=== PATIENT | male | born 1960 | race Caucasian/White ===

== ENCOUNTER 2019-01-01 20:41 | Emergency (ER) | payer MEDICARE ==
[2019-01-01] VITALS (7 sets, daily range): BP systolic 136–162; BP diastolic 77–92
[~2019-01-01] VITALS: Ht 198.1 cm; Wt 117.9 kg
[~2019-01-01 20:41] MED LIST: ACET325T12 PO; ASPI325T14 PO; FLAV100T PO; GUAI600T31 PO; IBUP200T63 PO; LEVO500T51 PO; NITR100C58 PO; TRAM50TA PO
--- NOTE | 2019-01-01 20:41 | NUR ---
ARRIVAL PATIENT PRESENTS VIA AMBULANCE. EMS REPORT THAT PATIENT REPORTS THAT HE IS "HOT" AND HAS MUSCLE CRAMPS. PATIENT IS SCREAMING OUT SAYING THAT HIS LEGS ARE CRAMPING. WHEN PATIENT TRANSFERS TO BED HE IS COMPLAINING OF A SNAKE THAT IS ON HIS FOREHEAD. REPORTS THAT HE HAS BEEN LOOKING FOR WATER ALL DAY AND NO ONE WOULD GIVE HIM ANY. EMS REPORT THAT PD HAS BEEN CALLED ON HIM SEVERAL TIMES TODAY. PATIENT IS JUST REPEATING THAT HE NEEDS WATER. VSS. NO DISTRESS NOTED. MD JAME NOTIFIED.
[2019-01-01] MEDS ORDERED: ATIVAN PO STA (21:17)
[2019-01-01] MEDS ORDERED: ZYPREXA IM STA (21:25)
--- NOTE | 2019-01-01 21:25 | ER.PDOC ---
General Chief Complaint: General Complaint Stated Complaint: OVERHEATED TRAVEL OUT OF US: No Time seen by MD: 20:45 Source: patient, EMS Exam Limitations: clinical condition, intoxication History of Present Illness Initial Comments Pt brought by EMS, because he was overheated, said to EMS that he smoked meth, but, denied it to me. Initially he refused me taking care of him because he said that I had treated him and injected something in his toe, then he accepted that it wasn't me. He c/o of cramps on his legs. Timing/Duration: unsure Associated Symptoms: denies symptoms Allergies: Coded Allergies: Penicillins (Verified Allergy, Unknown, Rash, 07/30/16) sulfamethoxazole (Verified Allergy, Unknown, 07/30/16) trimethoprim (Verified Allergy, Unknown, 07/30/16) ciprofloxacin (Verified Adverse Reaction, Severe, TONGUE SWELLING, 07/30/16) Home Meds Reported Medications Flavoxate Hcl (FLAVOXATE HCL) 100 Mg Tablet, 100 MG PO TID, #30 TABLET 08/02/16 Tramadol Hcl (TRAMADOL HCL) 50 Mg Tablet, 1 TAB PO Q4 for PAIN, #15 TAB 08/02/16 Guaifenesin (MUCINEX) 600 Mg Tablet.er, 1 TAB PO TID, #14 TAB 07/30/16 Aspirin (ASPIRIN) 325 Mg Tablet, 650 MG PO Q6 PRN for PAIN, TABLET 05/01/16 Past Medical History Medical History: no pertinent history Surgical History: no surgical history Social History Smoking: less than 1 pack/day Alcohol Use: none Drug Use: marijuana, Meth Review of Systems Constitutional: see HPI Psychiatric/Neurological: anxiety, other (hallucinating, weepy, fearful) All Other Systems: Reviewed and Negative Physical Exam General Appearance: Anxious EENT: eyes nml inspection Neck: Non-Tender, Full Range of Motion, Supple Respiratory: chest non-tender, lungs clear CVS: reg rate & rhythm, no murmur, no gallop, pulses nml Gastrointestinal: Normal Bowel Sounds, No Organomegaly, No Pulsatile Mass, Non Tender Back: Normal Inspection, No CVA Tenderness, No Vertebral Tenderness Extremities: Normal Range of Motion, Non-Tender Neurologic/Psychiatric: Oriented x 3, Other (hallucinating) Skin: Normal Color Lymphatic: No Adenopathy Results/Orders Results/Orders Orders - DAIJA KILGORE MD Lorazepam (Ativan) (01/01/19 21:17) Acetaminophen With Codeine (Tylenol #3) (01/01/19 21:30) Cyclobenzaprine Hcl (Flexeril) (01/01/19 21:30) Olanzapine (Zyprexa) (01/01/19 21:25) Cyclobenzaprine Hcl (Flexeril) (01/01/19 21:44) Acetaminophen With Codeine (Tylenol #3) (01/01/19 21:44) Lorazepam (Ativan) (01/01/19 21:44) Olanzapine (Zyprexa) (01/01/19 22:04) Urinalysis (01/01/19 22:25) Drug Screen Medical(Ml) (01/01/19 22:25) Urine Culture (01/02/19 00:25) Vital Signs Date Time Temp Pulse Resp B/P (MAP) Pulse Ox O2 Delivery O2 Flow Rate FiO2 01/01/19 23:30 94 160/86 (110) 95 01/01/19 23:00 97 155/91 (112) 95 01/01/19 22:30 96 136/86 (103) 96 01/01/19 22:00 98 162/78 (106) 95 01/01/19 21:30 102 148/92 (110) 96 01/01/19 21:12 97.7 106 18 01/01/19 21:02 97.7 106 18 96 Room Air 01/01/19 21:00 104 149/77 (101) 97 01/01/19 20:41 97.7 106 18 142/83 (102) 96 Room Air Administered Medications Medications (Trade) Dose Ordered Sig/Ghislaine Route PRN Reason Start Time Stop Time Status Last Admin Dose Admin Cyclobenzaprine HCl (Flexeril) 10 mg STAT PRN PO MUSCLE SPASM 01/01/19 21:30 01/31/19 21:29 01/01/19 21:55 10 MG Lorazepam (Ativan) 1 mg STAT STAT PO 01/01/19 21:17 01/01/19 21:19 DC 01/01/19 21:55 1 MG Olanzapine (Zyprexa) 10 mg STAT STAT IM 01/01/19 21:25 01/01/19 21:26 DC 01/01/19 22:22 10 MG Laboratory Tests Test 01/02/19 00:25 Urine Collection Type CATH Urine Color SAMMIE (YELLOW) Urine Appearance HAZY (CLEAR) H Urine Bilirubin NEGATIVE MG/DL (NEGATIVE) Urine Ketones 5 mg/dL (NEGATIVE) H Urine Specific [place] 1.020 (1.005-1.035) Urine pH 5 (5.0-6.0) Urine Protein 30 mg/dL (NEGATIVE) H Urine Urobilinogen NORMAL (NEGATIVE) Urine Nitrate NEGATIVE (NEGATAIVE) Urine Leukocyte Esterase 25 /uL TRACE (NEGATIVE) Urine Blood 50 2+ (NEGATIVE) H Urine RBC 5-10 RBC/HPF (NONE SEEN) H Urine WBC 5-10 WBC/HPF (0-2) H Urine Squamous Epithelial Cells FEW #/HPF (FEW) Urine Bacteria RARE (NONE SEEN) Urine Hyaline Casts 2-5 (NONE SEEN) Urine Glucose NORMAL (NEGATIVE) Urine Opiates, Qualitative NEGATIVE ng/mL (CUT-OFF:300) Urine Methadone, Qualitative POSITIVE ng/mL (CUT-OFF:300) Urine Amphetamine Qualitative POSITIVE ng/mL (CUTOFF:1000) Urine Barbiturates, Qualitative NEGATIVE ng/mL (CUT-OFF:200) Urine Phencyclidine Screen NEGATIVE ng/mL (CUT-OFF:25) Urine MDMA (Ecstasy), Qualitative POSITIVE ng/mL (CUT-OFF:300) Urine Benzodiazepines Screen NEGATIVE ng/mL (CUT-OFF:200) Urine Cocaine Qualitative NEGATIVE ng/mL (CUT-OFF:300) Ur Tetrahydrocannabinol (THC) Scrn POSITIVE ng/mL (CUT-OFF:50) H Course Sepsis Screening Results: Posi: POSITIVE SEPSIS RISK Duration or Total Time Spent w: 55 Vitals & review Data Vital Sign - Last 24 Hours 01/01/19 01/01/19 01/01/19 01/01/19 20:41 21:00 21:02 21:12 Temp 97.7 97.7 97.7 Pulse 106 104 106 106 Resp 18 18 18 B/P (MAP) 142/83 (102) 149/77 (101) Pulse Ox 96 97 96 O2 Delivery Room Air Room Air 01/01/19 01/01/19 01/01/19 01/01/19 21:30 22:00 22:30 23:00 Pulse 102 98 96 97 B/P (MAP) 148/92 (110) 162/78 (106) 136/86 (103) 155/91 (112) Pulse Ox 96 95 96 95 01/01/19 23:30 Pulse 94 B/P (MAP) 160/86 (110) Pulse Ox 95 Laboratory Tests Test 01/02/19 00:25 Urine Collection Type CATH Urine Color SAMMIE Urine Appearance HAZY Urine Bilirubin NEGATIVE MG/DL Urine Ketones 5 mg/dL Urine Specific [place] 1.020 Urine pH 5 Urine Protein 30 mg/dL Urine Urobilinogen NORMAL Urine Nitrate NEGATIVE Urine Leukocyte Esterase 25 /uL TRACE Urine Blood 50 2+ Urine RBC 5-10 RBC/HPF Urine WBC 5-10 WBC/HPF Urine Squamous Epithelial Cells FEW #/HPF Urine Bacteria RARE Urine Hyaline Casts 2-5 Urine Glucose NORMAL Urine Opiates, Qualitative NEGATIVE ng/mL Urine Methadone, Qualitative POSITIVE ng/mL Urine Amphetamine Qualitative POSITIVE ng/mL Urine Barbiturates, Qualitative NEGATIVE ng/mL Urine Phencyclidine Screen NEGATIVE ng/mL Urine MDMA (Ecstasy), Qualitative POSITIVE ng/mL Urine Benzodiazepines Screen NEGATIVE ng/mL Urine Cocaine Qualitative NEGATIVE ng/mL Ur Tetrahydrocannabinol (THC) Scrn POSITIVE ng/mL Current Medications Medications (Trade) Dose Ordered Sig/Ghislaine PRN Reason Start Time Stop Time Status Last Admin Cyclobenzaprine HCl (Flexeril) 10 mg STAT PRN MUSCLE SPASM 01/01/19 21:30 01/31/19 21:29 01/01/19 21:55 Sepsis Infection Criteria Pres: None O2 Sat by Pulse Oximetry: 96 Departure Time of Disposition: 01:23 Disposition: 01 HOME, SELF-CARE Impression: Primary Impression: Methadone use disorder, mild, abuse Additional Impressions: Methamphetamine abuse Marijuana abuse Hallucinations Condition: Stable Referrals: GLORIA GUZMAN MD (PCP) PRIMARY CARE PROVIDER Duration or Time Spent with Pa: 20 Problem Qualifiers DAIJA KILGORE MD Jan 01, 2019 21:25
[2019-01-01] MEDS ORDERED: FLEXERIL PO PRN (21:30)
[2019-01-01] MEDS ORDERED: TYLENOL #3 PO ONE ×2 (21:30→21:44)
[2019-01-01] MEDS ORDERED: ATIVAN ONE (21:44)
[2019-01-01] MEDS ORDERED: FLEXERIL ONE (21:44)
[2019-01-01] MEDS ORDERED: ZYPREXA IM ONE (22:04)
--- NOTE | 2019-01-01 22:45 | NUR ---
UPDATE PATIENT RESTING IN BED WITH EYES CLOSED. MONITOR SHOWS VSS. NO SIGNS OF DISTRESS NOTED. CONTINUE TO MONITOR CLOSELY.
[2019-01-02] VITALS (8 sets, daily range): BP systolic 113–134; BP diastolic 63–94
--- NOTE | 2019-01-02 00:30 | NUR ---
UPDATE PATIENT RESTING IN BED WITH EYES CLOSED. MONITOR SHOWS VSS. NO SIGNS OF DISTRESS NOTED. CONTINUE TO MONITOR CLOSELY.
[2019-01-02 00:52] LABS: APPEARANCE,URINE HAZY (CLEAR); UA COLOR AMBER (YELLOW)
[2019-01-02 00:53] LABS: BILIRUBIN,URINE NEGATIVE (NEGATIVE); UROBILINOGEN,URINE NORMAL (NEGATIVE)
[2019-01-02] MEDS ORDERED: NS 1000ML 1,000 ML IV ONE (01:30)
--- NOTE | 2019-01-02 01:45 | NUR ---
UPDATE PATIENT IS AWAKE, YELLING AND CURSING AT RN. WILL NOT ALLOW IV PLACEMENT. DR KILGORE NOTIFIED.
[2019-01-02] MEDS ORDERED: NS 1000ML 1,000 ML ONE (02:09)
--- NOTE | 2019-01-02 02:15 | NUR ---
DISCHARGE SEVERAL ATTEMPTS HAVE BEEN MADE TO DISCHARGE PATIENT. PATIENT WILL NOT GET OUT OF BED AND GET DRESSED. PATIENT'S SISTER WAS ALSO CALLED TO COME AND PICK PATIENT UP AND SHE REFUSED, SAYING THAT SHE HAS NOT SPOKEN TO HIM IN 2 YEARS.
--- NOTE | 2019-01-02 03:08 | NUR ---
UPDATE PSYCHODRAMATIST CONTACTED REGARDING PATIENT'S STATE AND BEING UNABLE TO DISCHARGE PATIENT DUE TO SAFETY REASONS. PATIENT CAN HARDLY STAND AND NEARLY FALLS OVER WHEN HE TRIES TO WALK. PSYCHODRAMATIST ADVISED OF SITUATION. PATIENT DEPARTED BUT REMAINS IN ROOM.
== END 2019-01-02 03:08 | disposition home or self-care (01) ==
LOC: ER 20:41 → EDBD 20:41 → ER 01-02 03:08
DX: F15.10 Other stimulant abuse, uncomplicated (principal); F12.10 Cannabis abuse, uncomplicated; F11.10 Opioid abuse, uncomplicated; R44.3 Hallucinations, unspecified; F41.9 Anxiety disorder, unspecified; F17.200 Nicotine dependence, unspecified, uncomplicated; Z79.82 Long term (current) use of aspirin; Z79.899 Other long term (current) drug therapy; Z88.0 Allergy status to penicillin; Z88.1 Allergy status to other antibiotic agents; Z88.2 Allergy status to sulfonamides; Z79.891 Long term (current) use of opiate analgesic
CPT/HCPCS: 36415; 80307; 81000; 87086; 96372; 99284; J3490; J7030; 80324; 80349; 80358

== ENCOUNTER 2019-01-02 15:56 | Inpatient (IN) | payer MEDICARE ==
[~2019-01-02] VITALS: Ht 198.1 cm; Wt 91.6 kg
--- NOTE | 2019-01-02 15:56 | NUR ---
ARRIVAL PT CAME TO ED[facility] VIA STRETCHER BY EMS. PT STATES HE HAS PASSED OUT A COUPLE OF TIMES TODAY. STATES HE WAS HERE FOR MALNUTRITION AND DEHYDRATION LAST NIGHT BUT WAS NOT GIVEN ANYTHING TO EAT OR DRINK WHILE HERE.BSM ON, REPORT GIVEN TO EDP. FOOD TRAY ORDERED.
[2019-01-02 16:17] VITALS: BP 130/72
--- NOTE | 2019-01-02 16:23 | ER.PDOC ---
General Chief Complaint: Syncope Stated Complaint: SYNCOPE TRAVEL OUT OF US: No Time seen by MD: 16:21 Source: patient Exam Limitations: no limitations History of Present Illness Initial Comments Heat exhaustion and hunger. Patient is homeless and says he has not eaten in past few days. Severity: moderate Associated Symptoms: weakness Allergies: Coded Allergies: Penicillins (Verified Allergy, Unknown, Rash, 07/30/16) sulfamethoxazole (Verified Allergy, Unknown, 07/30/16) trimethoprim (Verified Allergy, Unknown, 07/30/16) ciprofloxacin (Verified Adverse Reaction, Severe, TONGUE SWELLING, 07/30/16) Home Meds Reported Medications Flavoxate Hcl (FLAVOXATE HCL) 100 Mg Tablet, 100 MG PO TID, #30 TABLET 08/02/16 Tramadol Hcl (TRAMADOL HCL) 50 Mg Tablet, 1 TAB PO Q4 for PAIN, #15 TAB 08/02/16 Guaifenesin (MUCINEX) 600 Mg Tablet.er, 1 TAB PO TID, #14 TAB 07/30/16 Aspirin (ASPIRIN) 325 Mg Tablet, 650 MG PO Q6 PRN for PAIN, TABLET 05/01/16 Past Medical History Medical History: other Surgical History: no surgical history Social History Smoking: cigarettes, greater than 1 pack/day Alcohol Use: none Drug Use: marijuana, Meth Review of Systems Constitutional: see HPI EENTM: no symptoms reported Respiratory: no symptoms reported Cardiovascular: no symptoms reported Gastrointestinal: no symptoms reported All Other Systems: Reviewed and Negative Physical Exam General Appearance: No Apparent Distress, WD/WN Neck: Non-Tender, Full Range of Motion, Supple, Normal Inspection Respiratory: chest non-tender, lungs clear, normal breath sounds, no respiratory distress CVS: reg rate & rhythm, no murmur, no gallop, pulses nml, nml capillary refill Gastrointestinal: Normal Bowel Sounds, No Organomegaly, No Pulsatile Mass, Non Tender Back: Normal Inspection Extremities: Normal Range of Motion Neurologic/Psychiatric: lighting specialist II-XII NML as Tested Results/Orders Results/Orders Orders - ADONAY GOMEZ MD Cbc With Auto Diff (01/02/19 16:18) Comprehensive Metabolic Panel (01/02/19 16:18) Creatine Kinase (01/02/19 16:18) Ekg-Routine (01/02/19 16:18) Troponin I (01/02/19 16:18) Vital Signs Date Time Temp Pulse Resp B/P (MAP) Pulse Ox O2 Delivery O2 Flow Rate FiO2 01/02/19 16:17 97.4 85 14 130/72 (91) 96 Room Air 01/02/19 16:11 97.4 85 16 96 Room Air 01/02/19 16:11 97.4 85 14 01/02/19 05:07 207.9 85 Laboratory Tests Test 01/02/19 16:40 White Blood Count 7.4 10^3/uL (4.5-11.0) Red Blood Count 5.12 10^6/uL (4.50-5.90) Hemoglobin 16.3 g/dL (13.9-16.3) Hematocrit 46.7 % (37.0-53.0) Mean Corpuscular Volume 91.2 fL (78-100) Mean Corpuscular Hemoglobin 31.8 pg (26-34) Mean Corpuscular Hemoglobin Concent 34.9 g/dL (33-37) Red Cell Distribution Width 13.5 % (11.5-14.5) Platelet Count 201 10^3/uL (150-400) Mean Platelet Volume 8.9 fL (7.8-11.0) Neutrophils (%) (Auto) 41.7 % (41.0-85.0) Lymphocytes (%) (Auto) 43.6 % (24.0-44.0) Monocytes (%) (Auto) 12.7 % (5.0-12.0) H Neutrophils # (Auto) 3.1 10^3/uL (1.8-7.7) Lymphocytes # (Auto) 3.2 10^3/uL (1.0-4.8) Monocytes # (Auto) 0.9 10^3/uL (0.3-0.8) H Absolute Immature Granulocyte (auto 0.01 10^3 u/L (0-2) Immature Granulocytes % 0.10 % (0.00-0.50) Eosinophils % 1.4 % (0.0-5.0) Basophils % 0.5 % (0.0-0.2) H Basophils # 0.0 10^3/uL (0.0-0.1) Eosinophil Count 0.1 10^3/uL (0.0-0.2) Sodium Level 139 mmol/L (132-145) Potassium Level 3.6 mmol/L (3.6-5.2) Chloride Level 103.0 mmol/L (96-109) Carbon Dioxide Level 25.5 mmol/L (20.0-32) Anion Gap 14.1 Blood Urea Nitrogen 29 mg/dL (7-18) H Creatinine 2.06 mg/dL (0.59-1.40) *H Estimated GFR () 40.3 (>/=60) BUN/Creatinine Ratio 14.0 Glucose Level 73 mg/dL (70-110) Calcium Level 8.2 mg/dL (8.4-10.5) L Total Bilirubin 1.4 mg/dL (0.2-1.0) H Aspartate Amino Transferase (AST) 31 U/L (0-35) Alanine Aminotransferase (ALT) 32 U/L (12-78) Alkaline Phosphatase 95 U/L (50-136) Total Creatine Kinase 243 U/L (39-308) Troponin I < 0.02 ng/mL (0.00-0.05) Total Protein 6.4 g/dL (6.4-8.2) Albumin 3.6 g/dL (3.4-5.0) Globulin 2.8 EKG/XRAY/CT/US EKG Comments: Normal Departure Time of Disposition: 17:26 Disposition: 09 ADMITTED INPATIENT Impression: Primary Impression: NEIL (acute kidney injury) Additional Impressions: Dehydration UTI (urinary tract infection) Qualified Codes: N39.0 - Urinary tract infection, site not specified; R31.9 - Hematuria, unspecified Condition: Stable Referrals: GLORIA GUZMAN MD (PCP) PRIMARY CARE PROVIDER Comments Admitted to Dr. Bowling Duration or Time Spent with Pa: 60 mins PATRICIA,ADONAY Lund MD Jan 02, 2019 16:23
--- NOTE | 2019-01-02 16:27 | PCM.EKG ---
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
[2019-01-02 16:50] LABS: BASOPHIL % 0.5 % (0.0-0.2); EOSINOPHIL # 0.1 10^3/uL (0.0-0.2); EOSINOPHIL % 1.4 % (0.0-5.0); HEMOGLOBIN 16.3 g/dL (13.9-16.3); LYMPHOCYTES # 3.2 10^3/uL (1.0-4.8); LYMPHOCYTES % 43.6 % (24.0-44.0); MEAN CELL HGB 31.8 pg (26-34); MEAN CELL HGB CONCENTRATION 34.9 g/dL (33-37); MEAN CORP VOLUME 91.2 fL (78-100); MEAN PLATELET VOLUME 8.9 fL (7.8-11.0); MONOCYTES # 0.9 10^3/uL (0.3-0.8); MONOCYTES % 12.7 % (5.0-12.0); NEUTROPHIL # 3.1 10^3/uL (1.8-7.7); NEUTROPHILS % 41.7 % (41.0-85.0); RED CELL DISTRIBUTION WIDTH 13.5 % (11.5-14.5); WHITE BLOOD CELL 7.4 10^3/uL (4.5-11.0)
[2019-01-02 17:08] LABS: ALANINE AMINOTRANSFERASE(ML) 32 U/L (12-78); ALKALINE PHOSPHATASE 95 U/L (50-136); ASPARTATE AMINO TRANSFERASE 31 U/L (0-35); CALCIUM 8.2 mg/dL (8.4-10.5); CARBON DIOXIDE 25.5 mmol/L (20.0-32); GLUCOSE 73 mg/dL (70-110)
--- NOTE | 2019-01-02 17:19 | NUR ---
HOSPITALIST DR GOMEZ ON PHONE WITH DR ZHANG
--- NOTE | 2019-01-02 17:30 | NUR ---
STATUS PT EATING SANDWICH TRAY AT BEDSIDE.
[2019-01-02] MEDS ORDERED: HNS 1000ML/KCL 20MEQ 1,000 ML IV STA (17:31)
[2019-01-02] MEDS ORDERED: ROCEPHIN 1,000 MG in NS 100ML 100 ML IV STA (17:31)
[2019-01-02] MEDS ORDERED: NS 100ML 100 ML IV ONE (17:36)
[2019-01-02] MEDS ORDERED: HNS 1000ML/KCL 20MEQ 1,000 ML ONE (17:36)
[2019-01-02] MEDS ORDERED: ROCEPHIN ONE (17:37)
--- NOTE | 2019-01-02 18:05 | NUR ---
ADMIT PT TRANSFERRED TO [facility] VIA , REPORT GIVEN TO [facility].
[2019-01-02 20:40] VITALS: BP 135/96
[2019-01-03 04:39] VITALS: BP 116/62
--- NOTE | 2019-01-03 06:50 | NUR ---
REPORT RECEIVED REPORT, ASSUMED CARE FOR PATIENT AT THIS TIME.
[2019-01-03] MEDS: NS 1000ML 1,000 ML IV SCH ×2 (07:00→19:50)
[2019-01-03 07:30] VITALS: BP 125/70
--- NOTE | 2019-01-03 10:15 | NUR ---
PATIENT AMBULATING IN HALLWAY
[2019-01-03 11:58] VITALS: BP 131/68
[2019-01-03] MEDS ORDERED: ZANAFLEX PO PRN (14:00)
[2019-01-03] MEDS ORDERED: ATIVAN IV PRN (14:00)
--- NOTE | 2019-01-03 14:14 | DIREP ---
PROCEDURE:CHEST 1 VIEW COMPARISON:[facility], CR, XRAY CHEST 2 VWS, 05/24/2018, 00:11 AM. [facility], CR, XRAY CHEST 2 VWS, 03/15/2017, 11:02 AM. [facility], CT, CT ABD/PELVIS W/O, 05/01/2016, 02:40 AM. INDICATIONS:Short of breath FINDINGS: LUNGS/PLEURA:No significant pulmonary parenchymal abnormalities. No effusions. VASCULATURE:Normal. Unremarkable pulmonary vasculature. CARDIAC:Normal. No cardiac silhouette abnormality or cardiomegaly. MEDIASTINUM:Normal. No visible mass or adenopathy. BONES:Normal. No fracture or visible bony lesion. OTHER:Negative. CONCLUSION:No acute cardiopulmonary abnormalities. There is no significant change as compared with the previous examination. Dictated by: Daljit Hickey M.D. on 01/03/2019 at 02:13 PM
[2019-01-03] MEDS ORDERED: ROCEPHIN ONE (14:50)
[2019-01-03] MEDS ORDERED: NS 100ML 100 ML IV ONE (14:50)
[2019-01-03] MEDS: MUCINEX PO SCH ×2 (14:56→21:00)
[2019-01-03] MEDS: ROCEPHIN 1,000 MG in NS 100ML 100 ML IV SCH (14:56)
[2019-01-03] MEDS: URISPAS PO SCH ×2 (14:56→21:00)
[2019-01-03] MEDS: LOVENOX SQ SCH (14:57)
[2019-01-03 16:09] VITALS: BP 128/70
[2019-01-03] MEDS: ULTRAM PO SCH ×3 (16:10→23:37)
--- NOTE | 2019-01-03 16:48 | HPH ---
ADMIT DATE: CHIEF COMPLAINT: Syncope and shortness of breath. HISTORY OF PRESENT ILLNESS: This is a 58-year-old male with a past medical history of hepatitis C, polysubstance abuse, homelessness, and nephrolithiasis who presents via EMS after he was found at a store in town very weak and confused. The patient states that he lives in a tent and had gotten very hot over the last several days and had been very weak, developed shortness of breath and cough, and started having episodes of fainting. He states he decided to walk for help, but fainted in the field and when he woke up, he did not know what time it was, but he proceeded to walk to a store where he could call 911. He states that secondary to his homelessness, he is not able to eat very much and he has gone several days without eating. He has significant leg cramping and pain, which he states is a chronic problem for him. His biggest complaint at this time, however, is the shortness of breath, cough and congestion as well as a fullness that he describes in the chest and esophagus that is related that he does not know what it is related to. He states that it gives him nausea and he has had several episodes of vomiting over the last couple of days. The patient has a history of schizophrenia and very likely due to social and psychiatric conditions. He has not had a home in several months. He does, however, continue to abuse methamphetamine 3-4 times per week, as well as borrow methadone, hydrocodone, Xanax from friends. He admits to smoking marijuana and smoking 3 packs of cigarettes per day. He states he drinks once or twice per week. PAST MEDICAL HISTORY: 1. Hypertension. 2. Schizophrenia. 3. Nephrolithiasis. 4. Ureterolithiasis. 5. Benign prostatic hypertrophy. 6. Homelessness. 7. Polysubstance abuse. 8. Chronic kidney disease. 9. Reported history of hypertension. 10. Reported history of chronic liver disease. MEDICATIONS: 1. Tramadol p.r.n. 2. Flavoxate. 3. Guaifenesin. ALLERGIES: PENICILLIN, CIPRO AND SULFA. PAST SURGICAL HISTORY: Denies. SOCIAL HISTORY: Alcohol -- 1-3 drinks per week. Tobacco -- 3 packs per day x 45 years. Chronic marijuana, methamphetamine, opiate, ecstasy, and benzodiazepine use. The patient is homeless and is currently living in a tent in [facility]. FAMILY HISTORY: Denies. He states that he has a daughter and ex-girlfriend in [place], but he is estranged from all family. REVIEW OF SYSTEMS: GENERAL: Positive for overall weakness, fatigue and malaise. CARDIAC: Denies chest pain other than fullness in the esophagus. No orthopnea or PND. RESPIRATORY: Positive for shortness of breath, cough and congestion. No reported history of tuberculosis. GASTROINTESTINAL: Positive for nausea, vomiting. Denies constipation or diarrhea. Positive history of hepatitis C. No GI bleeding per history. GENITOURINARY: Denies dysuria, frequency, hematuria or nocturia. No incontinence. HEMATOLOGIC: No easy bleeding or bruising. ENDOCRINE: No recent weight loss or weight gain. No temperature intolerance. NEUROLOGIC: Denies headache, paresthesias or dizziness. One episode of syncope earlier today. MUSCULOSKELETAL: Chronic muscle weakness throughout most muscle groups. PSYCHIATRIC: Positive for anxiety symptoms on a daily basis. DERMATOLOGIC: Denies bruising or skin lesions. OBJECTIVE: VITAL SIGNS: Temperature is 97.4, pulse 84, respirations 14, pulse ox 96%. GENERAL: This is a weak-appearing male in no acute distress. He is disheveled. HEENT: Atraumatic, normocephalic. Sclerae are clear and anicteric. Oral mucosa is moist. NECK: Soft, supple, normal range of motion. No bruits, goiter, mass or adenopathy. LUNGS: Decreased breath sounds bilaterally with coarse breath sounds on expiration at bilateral upper lobes. HEART: Regular rate and rhythm without S3 or S4. No murmurs heard. ABDOMEN: Soft, nontender, nondistended. Positive bowel sounds. No masses felt. EXTREMITIES: Warm and well perfused without evidence of edema, cyanosis or clubbing. NEUROLOGIC: Cranial nerves 2-12 are grossly intact and symmetric. SKIN: Intact. LABORATORY DATA: WBC 7.4, hemoglobin 16.3, hematocrit 46.7, platelets 201. Sodium 139, potassium 3.6, chloride 103, CO2 of 25, BUN 29, creatinine 2.06. Glucose 73, calcium 8.2, total bilirubin 1.4, AST 31, ALT 32. Alkaline phosphatase 95, total CK 243. Troponin I negative. Urinalysis; 5-10 wbc's, rare bacteria, positive for blood and protein. Urine drug screen -- positive for methadone, amphetamine, MDMA, and THC. Drug screen from 24 hours ago was positive for methadone also. Head CT pending. ASSESSMENT: 1. Heat exhaustion. 2. Syncope. 3. Shortness of breath. 4. Upper respiratory tract infection. 5. Atypical chest pain. 6. Urinary tract infection. 7. Polysubstance overdose. 8. Acute kidney injury. 9. Hyperbilirubinemia. 10. Hepatitis C. PLAN: 1. The patient is admitted to [facility] for further evaluation and management. 2. Start on IV antibiotics for urinary tract infection as well as upper respiratory tract infection. 3. We will check CT of the chest now, but will ultimately need a chest CT given his atypical chest pain, shortness of breath, and smoking history. 4. We will check PSA given his extensive urologic history. 5. Aggressive IV fluid resuscitation for heat exhaustion and acute kidney injury. Kidney injury pattern currently looks like acute tubular necrosis or possibly interstitial nephritis. We will get more information over the next 24 hours. 6. Check tuberculosis, HIV, hepatitis screening. 7. Watch closely for any signs of withdrawal of alcohol or other substances. 8. Needs social service consultation for evaluation and possible placement. 9. Stress ulcer and DVT prophylaxis. 10. Sputum and urine culture pending. Greater than 65 minutes spent with the patient today including time with interview and physical examination, review of all diagnostic data, extensive discussion with the patient, and documentation. Greater than 50% of this visit was spent in counseling and coordination of care. Orlando Bowling MD DR: IFRAH/kiana JOB# [id number]
--- NOTE | 2019-01-03 18:50 | NUR ---
Report Received report from Kevon Abbott LVN
[2019-01-03 20:38] VITALS: BP 142/81
[2019-01-03 23:47] VITALS: BP 122/70
[2019-01-04] MEDS: ULTRAM PO SCH ×6 (04:35→23:48)
[2019-01-04 04:59] VITALS: BP 143/83
[2019-01-04 05:45] LABS: MEAN CELL HGB 32.5 pg (26-34); MEAN CELL HGB CONCENTRATION 35.1 g/dL (33-37); MEAN CORP VOLUME 92.6 fL (78-100); MEAN PLATELET VOLUME 8.9 fL (7.8-11.0); RED CELL DISTRIBUTION WIDTH 13.1 % (11.5-14.5); WHITE BLOOD CELL 5.5 10^3/uL (4.5-11.0)
[2019-01-04 06:23] LABS: CALCIUM 7.5 mg/dL (8.4-10.5); CARBON DIOXIDE 24.9 mmol/L (20.0-32)
--- NOTE | 2019-01-04 06:57 | NUR ---
REPORT RECEIVED REPORT, ASSUMED CARE FOR PATIENT AT THIS TIME.
[2019-01-04 07:54] VITALS: BP 120/64
[2019-01-04] MEDS: MUCINEX PO SCH ×3 (08:54→21:15)
[2019-01-04] MEDS: URISPAS PO SCH ×3 (08:54→21:15)
[2019-01-04] MEDS: PROTONIX PO SCH (08:54)
[2019-01-04] MEDS: NS 1000ML 1,000 ML IV SCH ×2 (09:10→21:14)
[2019-01-04 12:01] VITALS: BP 122/68
--- NOTE | 2019-01-04 14:05 | PRM.PN ---
Subjective Subjective Date: Jan 04, 2019 Time: 13:58 Subjective Pt. feeling minimally better. Still with sob and mild atypical chest pain. Cough and with moderate to severe chest congestion. Feels fairly weak. No other overnight complaints. Patient History: Coronary artery disease in mother 32 MOTHER, , Age:68 Diabetes insipidus 33 FATHER, FH: breast cancer 32 MOTHER, , Age:68 G8 SISTER FHx: sudden cardiac (SCD) 32 MOTHER, , Age:68 Hypertension G8 BROTHER No known health problems G8 SISTER G8 BROTHER G8 BROTHER Pacemaker 32 MOTHER, , Age:68 VTE VTE Risk Total Score: 1 VTE Risk Score VTE Risk: Score 0-1 = Low Risk (Aggressive mobilization; early ambulation; no VTE prophylaxis required) Score 2: Moderate Risk (Intermittent/Pneumatic Compression Device OR Lovenox/Heparin/Coumadin) Score 3-4: High Risk (Intermittent/Pneumatic Compression Device AND Lovenox/Heparin/Coumadin) Score > or =5: Highest Risk (Intermittent/Pneumatic Compression Device AND Lovenox/Heparin/Coumadin) Review of Systems Constitutional: Weakness; No: Fever, Chills, Sweats, Malaise, Other ENT: No: Ear pain, Ear discharge, Nose pain, Nose discharge, Nose congestion, Mouth pain, Mouth swelling, Throat pain, Throat swelling, Other Respiratory: Cough, Shortness of breath, SOB with excertion, Wheezing, Pl euritic Pain, Sputum Cardiovascular: Chest Pain; No: Palpitations, Orthopnea, Paroxysmal Noc. Dy spnea, Edema, Lt Headedness, Other Gastrointestinal: No: Nausea, Vomiting, Abdominal Pain, Diarrhea, Constipation, Melena, Hematochezia, Other Genitourinary: No Dysuria, No Frequency, No Incontinence, No Hematuria, No Retention, No Other Neurological: Weakness; No: Numbness, Incoordination, Change in speech, Confusion, Seizures, Other Allergies: Coded Allergies: Penicillins (Verified Allergy, Unknown, Rash, 07/30/16) sulfamethoxazole (Verified Allergy, Unknown, 07/30/16) trimethoprim (Verified Allergy, Unknown, 07/30/16) ciprofloxacin (Verified Adverse Reaction, Severe, TONGUE SWELLING, 07/30/16) Scheduled Flavoxate Hcl (Flavoxate Hcl), 100 MG PO TID, (Reported) Guaifenesin (Mucinex), 1 TAB PO TID, (Reported) Tramadol Hcl (Tramadol Hcl), 1 TAB PO Q4, (Reported) Discontinued Medications Aspirin (Aspirin), 650 MG PO Q6 PRN for PAIN, (Reported) Discontinued Reason: Cancel Objective Vitals and I/O Vital Sign - Last 24 Hours 01/03/19 01/03/19 01/03/19 01/04/19 16:09 20:38 23:47 04:59 Temp 97.6 97.9 97.9 97.9 97.6 97.9 97.9 97.9 Pulse 74 102 71 80 Resp 18 18 18 18 B/P (MAP) 128/70 (89) 142/81 (101) 122/70 (87) 143/83 (103) Pulse Ox 98 97 93 96 O2 Delivery Room Air Room Air Room Air Room Air 01/04/19 01/04/19 07:54 12:01 Temp 98.0 97.9 98.0 97.9 Pulse 65 72 Resp 18 18 B/P (MAP) 120/64 (82) 122/68 (86) Pulse Ox 95 96 O2 Delivery Room Air Room Air Intake and Output 01/03/19 01/03/19 01/04/19 14:59 22:59 06:59 Intake Total 342 ml 120 ml 1000 ml Output Total 1000 ml Balance -658 ml 120 ml 1000 ml General: Alert, Oriented X3, Cooperative, No acute distress HEENT: Atraumatic, PERRLA Lungs: Clear to auscultation, Other (Rhonchi at bilateral bases.) Heart: Regular rate, Normal S1, Normal S2, No murmurs Abdomen: Normal bowel sounds, Soft, No tenderness, No masses Extremities: No clubbing, No cyanosis, No edema, Normal pulses, No tenderness/swelling Neuro: Normal gait, Normal speech, Strength at 5/5 X4 ext, Normal tone, Sensation intact Psych/Mental Status: Mental status NL, Mood NL All Results(Lab/Rad) Laboratory Tests Test 01/03/19 15:15 01/04/19 05:33 Vitamin B12 Level 215 pg/mL Folate 17.0 ng/mL Thyroid Stimulating Hormone (TSH) 0.786 mIU/mL HIV-1 Antibody NON-REACTIVE HIV-2 Antibody NON-REACTIVE White Blood Count 5.5 10^3/uL Red Blood Count 4.61 10^6/uL Hemoglobin 15.0 g/dL Hematocrit 42.7 % Mean Corpuscular Volume 92.6 fL Mean Corpuscular Hemoglobin 32.5 pg Mean Corpuscular Hemoglobin Concent 35.1 g/dL Red Cell Distribution Width 13.1 % Platelet Count 153 10^3/uL Mean Platelet Volume 8.9 fL Sodium Level 139 mmol/L Potassium Level 3.6 mmol/L Chloride Level 106.0 mmol/L Carbon Dioxide Level 24.9 mmol/L Anion Gap 11.7 Blood Urea Nitrogen 17 mg/dL Creatinine 1.08 mg/dL Estimated GFR () 85.0 BUN/Creatinine Ratio 15.0 Glucose Level 128 mg/dL Calcium Level 7.5 mg/dL Total Bilirubin 0.6 mg/dL Aspartate Amino Transf (AST/SGOT) 21 U/L Alanine Aminotransferase (ALT/SGPT) 27 U/L Alkaline Phosphatase 73 U/L Total Protein 4.6 g/dL Albumin 2.5 g/dL Globulin 2.1 Prostate Specific Ag Free & Total 1.84 ng/mL Current Medications Medications (Trade) Dose Ordered Sig/Ghislaine Route PRN Reason Start Time Stop Time Status Last Admin Dose Admin Potassium Chloride/Sodium Chloride 1,000 ml @ 100 mls/hr Q10H STAT IV 01/02/19 17:31 01/03/19 03:30 DC 01/02/19 17:40 Ceftriaxone Sodium 1000 mg/ Sodium Chloride 100 ml @ 100 mls/hr STAT STAT IV 01/02/19 17:31 01/02/19 18:30 DC 01/02/19 17:39 Sodium Chloride 100 ml @ ud STK-MED ONCE IV 01/02/19 17:36 01/02/19 17:38 DC Potassium Chloride/Sodium Chloride 1,000 ml @ ud STK-MED ONCE .ROUTE 01/02/19 17:36 01/02/19 17:39 DC Ceftriaxone Sodium (Rocephin) 1,000 mg STK-MED ONCE .ROUTE 01/02/19 17:37 01/02/19 17:39 DC Sodium Chloride 1,000 ml @ 75 mls/hr [id number] IV 01/03/19 06:30 02/02/19 06:29 01/03/19 07:00 Flavoxate HCl (Urispas) 100 mg TID PO 01/03/19 15:00 8/19/19 14:59 01/04/19 08:54 Guaifenesin (Mucinex) 600 mg TID PO 01/03/19 15:00 02/02/19 14:59 01/04/19 08:54 Tramadol HCl (Ultram) 50 mg Q4 PO 01/03/19 16:00 02/02/19 15:59 01/04/19 12:24 Lorazepam (Ativan) 1 mg Q4HR PRN IV AGITATION 01/03/19 14:00 02/02/19 13:59 Ceftriaxone Sodium 1000 mg/ Sodium Chloride 100 ml @ 100 mls/hr Q24HRS IV 01/03/19 14:00 02/02/19 13:59 01/03/19 14:56 Pantoprazole Sodium (Protonix) 40 mg DAILY PO 01/04/19 09:00 02/03/19 08:59 01/04/19 08:54 Enoxaparin Sodium (Lovenox) 40 mg Q24HRS SQ 01/03/19 14:00 02/02/19 13:59 01/03/19 14:57 Tizanidine HCl (Zanaflex) 4 mg BID PRN PO MUSCLE SPASM 01/03/19 14:00 02/02/19 13:59 Ceftriaxone Sodium (Rocephin) 1,000 mg STK-MED ONCE .ROUTE 01/03/19 14:50 01/03/19 14:51 DC Sodium Chloride 100 ml @ ud STK-MED ONCE IV 01/03/19 14:50 01/03/19 14:51 DC Course Sepsis Screening Results: Posi: NEGATIVE Sepsis Qualifier/Stage: NO DEFINITE RISK Duration or Total Time Spent w: 60 mins Vitals & review Data Vital Sign - Last 24 Hours 01/03/19 01/03/19 01/03/19 01/04/19 16:09 20:38 23:47 04:59 Temp 97.6 97.9 97.9 97.9 97.6 97.9 97.9 97.9 Pulse 74 102 71 80 Resp 18 18 18 18 B/P (MAP) 128/70 (89) 142/81 (101) 122/70 (87) 143/83 (103) Pulse Ox 98 97 93 96 O2 Delivery Room Air Room Air Room Air Room Air 01/04/19 01/04/19 07:54 12:01 Temp 98.0 97.9 98.0 97.9 Pulse 65 72 Resp 18 18 B/P (MAP) 120/64 (82) 122/68 (86) Pulse Ox 95 96 O2 Delivery Room Air Room Air Intake and Output 01/03/19 01/03/19 01/04/19 14:59 22:59 06:59 Intake Total 342 ml 120 ml 1000 ml Output Total 1000 ml Balance -658 ml 120 ml 1000 ml Laboratory Tests Test 01/02/19 16:40 01/03/19 15:15 01/04/19 05:33 White Blood Count 7.4 10^3/uL 5.5 10^3/uL Red Blood Count 5.12 10^6/uL 4.61 10^6/uL Hemoglobin 16.3 g/dL 15.0 g/dL Hematocrit 46.7 % 42.7 % Mean Corpuscular Volume 91.2 fL 92.6 fL Mean Corpuscular Hemoglobin 31.8 pg 32.5 pg Mean Corpuscular Hemoglobin Concent 34.9 g/dL 35.1 g/dL Red Cell Distribution Width 13.5 % 13.1 % Platelet Count 201 10^3/uL 153 10^3/uL Mean Platelet Volume 8.9 fL 8.9 fL Neutrophils (%) (Auto) 41.7 % Lymphocytes (%) (Auto) 43.6 % Monocytes (%) (Auto) 12.7 % Neutrophils # (Auto) 3.1 10^3/uL Lymphocytes # (Auto) 3.2 10^3/uL Monocytes # (Auto) 0.9 10^3/uL Absolute Immature Granulocyte (auto 0.01 10^3 u/L Immature Granulocytes % 0.10 % Eosinophils % 1.4 % Basophils % 0.5 % Basophils # 0.0 10^3/uL Eosinophil Count 0.1 10^3/uL Sodium Level 139 mmol/L 139 mmol/L Potassium Level 3.6 mmol/L 3.6 mmol/L Chloride Level 103.0 mmol/L 106.0 mmol/L Carbon Dioxide Level 25.5 mmol/L 24.9 mmol/L Anion Gap 14.1 11.7 Blood Urea Nitrogen 29 mg/dL 17 mg/dL Creatinine 2.06 mg/dL 1.08 mg/dL Estimated GFR () 40.3 85.0 BUN/Creatinine Ratio 14.0 15.0 Glucose Level 73 mg/dL 128 mg/dL Calcium Level 8.2 mg/dL 7.5 mg/dL Total Bilirubin 1.4 mg/dL 0.6 mg/dL Aspartate Amino Transf (AST/SGOT) 31 U/L 21 U/L Alanine Aminotransferase (ALT/SGPT) 32 U/L 27 U/L Alkaline Phosphatase 95 U/L 73 U/L Total Creatine Kinase 243 U/L Troponin I < 0.02 ng/mL Total Protein 6.4 g/dL 4.6 g/dL Albumin 3.6 g/dL 2.5 g/dL Globulin 2.8 2.1 Vitamin B12 Level 215 pg/mL Folate 17.0 ng/mL Thyroid Stimulating Hormone (TSH) 0.786 mIU/mL HIV-1 Antibody NON-REACTIVE HIV-2 Antibody NON-REACTIVE Prostate Specific Ag Free & Total 1.84 ng/mL Current Medications Medications (Trade) Dose Ordered Sig/Ghislaine PRN Reason Start Time Stop Time Status Last Admin Ceftriaxone Sodium 1000 mg/ Sodium Chloride 100 ml @ 100 mls/hr Q24HRS 01/03/19 14:00 02/02/19 13:59 01/03/19 14:56 Enoxaparin Sodium (Lovenox) 40 mg Q24HRS 01/03/19 14:00 02/02/19 13:59 01/03/19 14:57 Flavoxate HCl (Urispas) 100 mg TID 01/03/19 15:00 02/02/19 14:59 01/04/19 08:54 Guaifenesin (Mucinex) 600 mg TID 01/03/19 15:00 02/02/19 14:59 01/04/19 08:54 Lorazepam (Ativan) 1 mg Q4HR PRN AGITATION 01/03/19 14:00 02/02/19 13:59 Pantoprazole Sodium (Protonix) 40 mg DAILY 01/04/19 09:00 02/03/19 08:59 01/04/19 08:54 Sodium Chloride 1,000 ml @ 75 mls/hr [id number] 01/03/19 06:30 02/02/19 06:29 01/03/19 07:00 Tizanidine HCl (Zanaflex) 4 mg BID PRN MUSCLE SPASM 01/03/19 14:00 02/02/19 13:59 Tramadol HCl (Ultram) 50 mg Q4 01/03/19 16:00 02/02/19 15:59 01/04/19 12:24 Sepsis Infection Criteria Pres: None LEVEL 1 SEPSIS INFECTION CRITE: None/Not assessed LEVEL 2-SIRS (LIST ALL THAT AP: None/Not assessed Cardiovascular Evidence: Not Assessed or None Hematologic Evidence: None/Not assessed Hepatic Evidence: None/Not assessed Metabolic Evidence: None/Not assessed Neurological Evidence: None/Not assessed Respiratory Evidence: None/Not assessed Renal Evidence: None/Not assessed O2 Sat by Pulse Oximetry: 96 Assessment/Plan Assessment/Plan Assessment/Plan 1. Heat exhaustion - Mostly resolved. Still some weakness. Urinary output improving. Still not drinking much fluids. - Cont. IV fluids. 2. Syncope - Likely secondary to above as well as renal function and polysubstance abuse. 3. Shortness of breath - Slight improvement. Still with pulm sx. - Chest CT pending. - Sputum cx pending. 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 4. Upper respiratory tract infection - Still with a lot of congestion. - Azithromycin IV. - Possible atypical pneumonia as well as being at risk for multiple different pathogens given his homelessness. - CT pending. 5. Atypical chest pain - ACS ruled out. - Eval CP. 6. Urinary tract infection - Not much symptomatology at this point. - Continue emperic coverage. 7. Polysubstance overdose - Counseled pt. extensively on cessation. 8. Acute kidney injury - Secondary to dehydration and heat exhaustion. Very likely pre-renal disease, ATN, present on admission. No resolved. 9. Hyperbilirubinemia - Continue to monitor. 10. Hepatitis C - Quant PCR pending. - HIV negative. ELVIA ZHANG MD Jan 04, 2019 14:04
[2019-01-04] MEDS: ROCEPHIN 1,000 MG in NS 100ML 100 ML IV SCH (15:22)
[2019-01-04] MEDS: LOVENOX SQ SCH (15:29)
[2019-01-04 16:41] VITALS: BP 118/64
[2019-01-04] MEDS ORDERED: NICOTINE 21MG PATCH TD ONE (17:35)
--- NOTE | 2019-01-04 17:35 | DIREP ---
PROCEDURE:CT CHEST WITH CONTRAST COMPARISON:[facility], CT, CT ABD/PELVIS W/O, 05/01/2016, 02:40 AM. [facility], CR, XRAY CHEST SINGLE VW, 01/03/2019, 01:44 PM. INDICATIONS:Homeless male with chest pain and chronic cough / sob. TECHNIQUE:Helical sections through the chest were performed from the lung apices through the diaphragms without IV contrast. Sagittal and coronal reconstructions are obtained from source images. FINDINGS: LUNGS:Normal. No visible pulmonary disease. No evidence of infiltrate, mass, or cavity formation. PLEURA:Normal. No mass or effusion. CARDIAC:Normal heart size. No pericardial effusion. MEDIASTINUM:Normal. No mass or adenopathy. ATUL:Normal. No mass or adenopathy. AORTA:No aneurysm or dissection.. CHEST WALL:Normal. No mass or axillary adenopathy. LIMITED ABDOMEN:There are multiple tiny nonobstructing calculi in the upper portion of the left kidney, measuring up to 2 mm diameter. There is also a partially visualized calculus, 8 mm diameter, seen in the lowest portion of the exam images, which may be located within the left renal pelvis. There is a sub cm low-density area in the anterior superior portion of right hepatic lobe is too small to characterize but which may represent a cyst. BONES:No acute pathology. OTHER:Negative. CONCLUSION: 1. No evidence of acute cardiac or pulmonary disease. 2. Multiple left renal calcifications. One of these calculi may be in the left renal pelvis itself. No dilatation identified in the included calices of the left kidney. Dictated by: Wayne Cardona M.D. on 01/04/2019 at 05:28 PM
[2019-01-04] MEDS: NICOTINE 21MG PATCH TD SCH (17:37)
--- NOTE | 2019-01-04 18:54 | NUR ---
REPORT REPORT GIVEN TO LUKE [facility]. RELINQUISHED CARE FOR PATIENT AT THIS TIME.
[2019-01-04 19:00] VITALS: BP 137/84
[2019-01-05 00:13] VITALS: BP 123/66
--- NOTE | 2019-01-05 00:38 | NUR ---
ativan 1mg iv given per prn order
[2019-01-05] MEDS: ULTRAM PO SCH ×3 (03:33→12:12)
[2019-01-05 04:16] VITALS: BP 116/61
[2019-01-05 05:15] LABS: HEMOGLOBIN 15.1 g/dL (13.9-16.3); MEAN CELL HGB 32.6 pg (26-34); MEAN CELL HGB CONCENTRATION 35.4 g/dL (33-37); MEAN PLATELET VOLUME 9.2 fL (7.8-11.0); WHITE BLOOD CELL 4.6 10^3/uL (4.5-11.0)
[2019-01-05 05:37] LABS: CALCIUM 7.9 mg/dL (8.4-10.5); CARBON DIOXIDE 29.1 mmol/L (20.0-32)
--- NOTE | 2019-01-05 06:47 | NUR ---
REPORT RECEIVED REPORT, ASSUMED CARE FOR PATIENT AT THIS TIME.
[2019-01-05 07:55] VITALS: BP 90/53
[2019-01-05] MEDS: MUCINEX PO SCH ×2 (08:50→15:00)
[2019-01-05] MEDS: URISPAS PO SCH ×2 (08:50→15:00)
[2019-01-05] MEDS: NICOTINE 21MG PATCH TD SCH (08:50)
[2019-01-05] MEDS: PROTONIX PO SCH (08:50)
[2019-01-05] MEDS ORDERED: DOXY100T PO (11:04)
[2019-01-05] MEDS ORDERED: GUAI118L13 PO (11:04)
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
--- NOTE | 2019-01-05 11:48 | DSH ---
DATE OF DISCHARGE: 01/05/2019 ADMITTING DIAGNOSES: 1. Heat exhaustion. 2. Syncope. 3. Shortness of breath. 4. Upper respiratory tract infection. 5. Atypical chest pain. 6. Urinary tract infection. 7. Polysubstance abuse. 8. Acute kidney injury. 9. Hyperbilirubinemia. 10. Hepatitis C. DISCHARGE DIAGNOSES: 1. Heat exhaustion. 2. Syncope. 3. Bronchitis. 4. Atypical chest pain. 5. Urinary tract infection. 6. Polysubstance overdose. 7. Acute kidney injury. 8. Hyperbilirubinemia. 9. Hepatitis C. DISCHARGE MEDICATIONS: 1. Doxycycline 100 mg p.o. b.i.d. for 5 days. 2. Resume previous home medications. 3. Guaifenesin with codeine every 4 hours p.r.n. -- 4 ounce bottle. DISCHARGE DISPOSITION: The patient given a list of resources for places to stay if he cannot secure correction. FOLLOWUP: Follow up with PCP within 2 weeks. HOSPITAL COURSE: This is a 58-year-old male who was admitted to [facility] with the above medical problems. He had stable vital signs on admission. He was started on aggressive IV fluid resuscitation for heat exhaustion. The patient is homeless and states that he had been staying in his tent and overheated and was not able to drink enough fluids. His CBC was stable. His chemistry showed acute renal failure with a BUN and creatinine of 29 and 2.06 respectively. His bilirubin was 1.4. These numbers both improved prior to discharge. He did have atypical chest pain on the right side as well as cough and congestion. Secondary to his multiple risk factors from being homeless, a CT scan of the chest was ordered, which was also negative for any acute disease. He was found to have urinary tract infection and was kept on IV antibiotics for this as well as his bronchitis. Over the course of the next 2 days, he improved significantly and was feeling much better by 01/05/2019. During my visit on 01/05/2019, the patient was doing well and states he was feeling better and did not have any overt complaints. His vital signs were reviewed and stable. His physical examination was normal within normal lung exams. His heart exam was normal as was his abdominal and extremity exam. His neurologic exam showed no focal neurologic deficits. His chemistry was stable other than a mildly decreased albumin. His CBC was normal. I discussed his living situation with case management and they were going to give him a list of options where he could stay. The patient was able to be discharged on 01/05/2019 with instructions to follow up with his PCP within 2 weeks. Orlando Bowling MD DR: IFRAH/kiana JOB# [id number]
[2019-01-05] MEDS: NS 1000ML 1,000 ML IV SCH (11:50)
[2019-01-05 12:10] VITALS: BP 113/64
[2019-01-05] MEDS: LOVENOX SQ SCH (14:00)
[2019-01-05] MEDS: ROCEPHIN 1,000 MG in NS 100ML 100 ML IV SCH (14:00)
[2019-01-05 16:26] VITALS: BP 113/64
--- NOTE | 2019-01-05 16:33 | NUR ---
PATIENT BEING DISCHARGED AT THIS TIME IN STABLE CONDITION. PATIENT WAS ASSISTED DOWNSTAIRS BY HOSPITAL PERSONNEL. RELINQUISHED CARE FOR PATIENT AT THIS TIME.
[2019-01-08 08:15] LABS: VITAMIN B6 9.4 ug/L (5.3-46.7)
== END 2019-01-05 17:22 | disposition home or self-care (01) | DRG 917 ==
LOC: ER 15:56 → EDBD 15:56 → MS 17:24 → OBSVTOIN 01-03 13:00 → MS 01-03 16:50 → EDPENDDISTM 01-05 16:27
PROVIDERS: ADMIT Internal Medicine; ATTEND Internal Medicine
DX: T40.3X1A Poisoning by methadone, accidental (unintentional), initial encounter (principal); N17.0 Acute kidney failure with tubular necrosis; N39.0 Urinary tract infection, site not specified; T67.5XXA Heat exhaustion, unspecified, initial encounter; J06.9 Acute upper respiratory infection, unspecified; R07.89 Other chest pain; N18.9 Chronic kidney disease, unspecified; B19.20 Unspecified viral hepatitis C without hepatic coma; E86.0 Dehydration; F17.210 Nicotine dependence, cigarettes, uncomplicated; T40.7X1A Poisoning by cannabis (derivatives), accidental (unintentional), initial encounter; F20.9 Schizophrenia, unspecified; I12.9 Hypertensive chronic kidney disease with stage 1 through stage 4 chronic kidney disease, or unspecified chronic kidney disease; J40 Bronchitis, not specified as acute or chronic; N40.0 Benign prostatic hyperplasia without lower urinary tract symptoms; Z59.0 Homelessness; Z87.442 Personal history of urinary calculi; Z88.1 Allergy status to other antibiotic agents; Z88.0 Allergy status to penicillin; Z88.2 Allergy status to sulfonamides; Z88.8 Allergy status to other drugs, medicaments and biological substances; Z79.82 Long term (current) use of aspirin; Z79.899 Other long term (current) drug therapy; Y92.89 Other specified places as the place of occurrence of the external cause; X30.XXXA Exposure to excessive natural heat, initial encounter; Y93.89 Activity, other specified; Y99.8 Other external cause status
CPT/HCPCS: 36415; 71045; 71260; 80053; 82550; 82607; 82746; 84153; 84425; 84443; 84484; 85025; 85027; 86318; 86480; 93005; 99285; G0378; J0696; J1650; J2060; J7030; J7050; Q9965; J7131

== ENCOUNTER 2019-01-07 00:19 | Emergency (ER) | payer MEDICARE ==
[~2019-01-07] VITALS: Ht 198.1 cm; Wt 108.9 kg
[~2019-01-07 00:19] MED LIST changes: +DOXY100T PO; +GUAI118L13 PO
--- NOTE | 2019-01-07 00:28 | ER.PDOC ---
General Chief Complaint: Abdomen Pain Stated Complaint: RIB PAIN/ABD PAIN TRAVEL OUT OF US: No Time seen by MD: 00:20 Source: patient, EMS Exam Limitations: clinical condition, intoxication History of Present Illness Initial Comments Pt was released from [facility] yesterday for [facility]IL, went home drank alcohol and did some meth, has some bilateral chest pain and abdominal pain Timing/Duration: unsure Severity: mild Associated Symptoms: chest pain Allergies: Coded Allergies: Penicillins (Verified Allergy, Unknown, Rash, 07/30/16) sulfamethoxazole (Verified Allergy, Unknown, 07/30/16) trimethoprim (Verified Allergy, Unknown, 07/30/16) ciprofloxacin (Verified Adverse Reaction, Severe, TONGUE SWELLING, 07/30/16) Home Meds Active Scripts Guaifenesin/Codeine Phosphate (GUAIFENESIN-CODEINE SYRUP) 118 Ml Liquid, 118 ML PO Q4 PRN for COUGH, #4 OZ Prov:ELVIA ZHANG MD 01/05/19 Doxycycline Hyclate (DOXYCYCLINE HYCLATE) 100 Mg Tablet, 100 MG PO BID for 5 Days Prov:ELVIA ZHANG MD 01/05/19 Reported Medications Flavoxate Hcl (FLAVOXATE HCL) 100 Mg Tablet, 100 MG PO TID, #30 TABLET 08/02/16 Tramadol Hcl (TRAMADOL HCL) 50 Mg Tablet, 1 TAB PO Q4 for PAIN, #15 TAB 08/02/16 Guaifenesin (MUCINEX) 600 Mg Tablet.er, 1 TAB PO TID, #14 TAB 07/30/16 Discontinued Reported Medications Aspirin (ASPIRIN) 325 Mg Tablet, 650 MG PO Q6 PRN for PAIN, TABLET 05/01/16 Past Medical History Surgical History: no surgical history Social History Smoking: cigarettes Alcohol Use: occassionally Drug Use: marijuana, Meth Review of Systems Cardiovascular: see HPI Psychiatric/Neurological: see HPI All Other Systems: Reviewed and Negative Physical Exam General Appearance: No Apparent Distress, WD/WN, Anxious EENT: eyes nml inspection, nml ENT inspection, pharynx nml Neck: Non-Tender, Full Range of Motion Respiratory: chest non-tender, lungs clear, normal breath sounds, no respiratory distress CVS: reg rate & rhythm, no murmur, no gallop Gastrointestinal: Normal Bowel Sounds, No Organomegaly, No Pulsatile Mass, Non Tender Back: Normal Inspection, No CVA Tenderness, No Vertebral Tenderness Extremities: Normal Range of Motion, Non-Tender Neurologic/Psychiatric: business functional analyst II-XII NML as Tested, No Motor/Sensory Deficits Skin: Normal Color Lymphatic: No Adenopathy Results/Orders Results/Orders Orders - DAIJA KILGORE MD Cbc With Auto Diff (01/07/19 00:23) Comprehensive Metabolic Panel (01/07/19 00:23) Creatine Kinase (01/07/19 00:23) Troponin I (01/07/19:23) Probnp B-Type Adjunct Professor Of English (01/07/19 00:23) PT (01/07/19 00:23) Partial Thromboplastin Time. (01/07/19 00:23) Xr Chest 1v (01/07/19 00:23) Ekg-Routine (01/07/19 00:23) Drug Screen Medical(Ml) (01/07/19 00:23) Urinalysis (01/07/19 00:23) Alcohol(Ml) (01/07/19 00:33) Lipase (01/07/19 00:42) Amylase (01/07/19 00:42) Vital Signs Date Time Temp Pulse Resp B/P (MAP) Pulse Ox O2 Delivery O2 Flow Rate FiO2 01/07/19 00:24 98.9 01/07/19 00:21 98.9 122 18 96 Room Air 01/05/19 16:26 208.0 85 Laboratory Tests Test 01/07/19 00:30 01/07/19 01:12 White Blood Count 6.7 10^3/uL (4.5-11.0) Red Blood Count 4.70 10^6/uL (4.50-5.90) Hemoglobin 15.5 g/dL (13.9-16.3) Hematocrit 43.0 % (37.0-53.0) Mean Corpuscular Volume 91.5 fL (78-100) Mean Corpuscular Hemoglobin 33.0 pg (26-34) Mean Corpuscular Hemoglobin Concent 36.0 g/dL (33-37) Red Cell Distribution Width 13.2 % (11.5-14.5) Platelet Count 205 10^3/uL (150-400) Mean Platelet Volume 8.9 fL (7.8-11.0) Neutrophils (%) (Auto) 47.3 % (41.0-85.0) Lymphocytes (%) (Auto) 40.7 % (24.0-44.0) Monocytes (%) (Auto) 10.4 % (5.0-12.0) Neutrophils # (Auto) 3.2 10^3/uL (1.8-7.7) Lymphocytes # (Auto) 2.7 10^3/uL (1.0-4.8) Monocytes # (Auto) 0.7 10^3/uL (0.3-0.8) Absolute Immature Granulocyte (auto 0.02 10^3 u/L (0-2) Immature Granulocytes % 0.30 % (0.00-0.50) Eosinophils % 1.0 % (0.0-5.0) Basophils % 0.3 % (0.0-0.2) H Basophils # 0.0 10^3/uL (0.0-0.1) Eosinophil Count 0.1 10^3/uL (0.0-0.2) Prothrombin Time 10.7 SEC (9.8-11.9) Prothrombin Time INR (Non-Therap) 1.1 PTT 23.7 SEC (24.67-30.72) Sodium Level 144 mmol/L (132-145) Potassium Level 3.9 mmol/L (3.6-5.2) Chloride Level 106.0 mmol/L (96-109) Carbon Dioxide Level 27.0 mmol/L (20.0-32) Anion Gap 14.9 Blood Urea Nitrogen 15 mg/dL (7-18) Creatinine 1.50 mg/dL (0.59-1.40) H Estimated GFR () 58.2 (>/=60) BUN/Creatinine Ratio 10.0 Glucose Level 106 mg/dL (70-110) Calcium Level 8.9 mg/dL (8.4-10.5) Total Bilirubin 0.7 mg/dL (0.2-1.0) Aspartate Amino Transferase (AST) 49 U/L (0-35) H Alanine Aminotransferase (ALT) 53 U/L (12-78) Alkaline Phosphatase 87 U/L (50-136) Total Creatine Kinase 308 U/L (39-308) Troponin I < 0.02 ng/mL (0.00-0.05) Pro-B-Type Natriuretic Peptide 570 pg/mL (0-125) H Total Protein 6.5 g/dL (6.4-8.2) Albumin 3.6 g/dL (3.4-5.0) Globulin 2.9 Amylase Level 55 U/L (25-115) Lipase 94 U/L (114-286) L Serum Alcohol < 3 mg/dL (0-50) Urine Collection Type CATH Urine Color YELLOW (YELLOW) Urine Appearance CLEAR (CLEAR) Urine Bilirubin NEGATIVE MG/DL (NEGATIVE) Urine Ketones NEGATIVE (NEGATIVE) Urine Specific [place] 1.015 (1.005-1.035) Urine pH 7 (5.0-6.0) Urine Protein 15 mg/dL (NEGATIVE) H Urine Urobilinogen NORMAL (NEGATIVE) Urine Nitrate NEGATIVE (NEGATAIVE) Urine Leukocyte Esterase NEGATIVE (NEGATIVE) Urine Blood NEGATIVE (NEGATIVE) Urine RBC 2-5 RBC/HPF (NONE SEEN) Urine WBC 2-5 WBC/HPF (0-2) Urine Squamous Epithelial Cells RARE #/HPF (FEW) Urine Amorphous Sediment SMALL (NONE SEEN) Urine Bacteria NONE SEEN (NONE SEEN) Urine Sperm FEW (NONE SEEN) Urine Glucose NORMAL (NEGATIVE) Urine Opiates, Qualitative NEGATIVE ng/mL (CUT-OFF:300) Urine Methadone, Qualitative NEGATIVE ng/mL (CUT-OFF:300) Urine Amphetamine Qualitative POSITIVE ng/mL (CUTOFF:1000) Urine Barbiturates, Qualitative NEGATIVE ng/mL (CUT-OFF:200) Urine Phencyclidine Screen NEGATIVE ng/mL (CUT-OFF:25) Urine MDMA (Ecstasy), Qualitative NEGATIVE ng/mL (CUT-OFF:300) Urine Benzodiazepines Screen NEGATIVE ng/mL (CUT-OFF:200) Urine Cocaine Qualitative NEGATIVE ng/mL (CUT-OFF:300) Ur Tetrahydrocannabinol (THC) Scrn POSITIVE ng/mL (CUT-OFF:50) H Departure Time of Disposition: 01:30 Disposition: 01 HOME, SELF-CARE Impression: Primary Impression: Methamphetamine abuse Condition: Stable Referrals: GLORIA GUZMAN MD (PCP) PRIMARY CARE PROVIDER Duration or Time Spent with Pa: DAIJA TEJEDA MD Jan 07, 2019 00:27
--- NOTE | 2019-01-07 00:33 | NUR ---
RT IN ROOM FOR EKG
--- NOTE | 2019-01-07 00:37 | NUR ---
XRAY IN ROOM FOR XR CHEST
--- NOTE | 2019-01-07 00:38 | PCM.EKG ---
[facility] Test Date: 2019-01-07 Test Time: 00:38:08 Pat Name: MAZIN GOMES Department: Room: Gender: M Siding Installer: ZIA : 1960 Requested By: DAIJA HALL Order Number: [id number] Reading MD: Daija Hall Measurements Intervals [place] Rate: 114 P: 64 LA: 144 QRS: 28 QRSD: 80 T: 58 QT: 336 QTc: 463 Interpretive Statements Sinus tachycardia Otherwise normal ECG Compared to ECG 01/02/2019 16:28:20 Sinus rhythm no longer present Electronically Signed On 01-18-2019 7:17:51 CDT by Daija Hall Please click the below link to view image of tracing.
[2019-01-07 00:46] LABS: BASOPHIL % 0.3 % (0.0-0.2); EOSINOPHIL # 0.1 10^3/uL (0.0-0.2); HEMOGLOBIN 15.5 g/dL (13.9-16.3); LYMPHOCYTES # 2.7 10^3/uL (1.0-4.8); LYMPHOCYTES % 40.7 % (24.0-44.0); MEAN CORP VOLUME 91.5 fL (78-100); MEAN PLATELET VOLUME 8.9 fL (7.8-11.0); MONOCYTES # 0.7 10^3/uL (0.3-0.8); MONOCYTES % 10.4 % (5.0-12.0); NEUTROPHIL # 3.2 10^3/uL (1.8-7.7); NEUTROPHILS % 47.3 % (41.0-85.0); RED CELL DISTRIBUTION WIDTH 13.2 % (11.5-14.5); WHITE BLOOD CELL 6.7 10^3/uL (4.5-11.0)
[2019-01-07 01:02] LABS: ALANINE AMINOTRANSFERASE(ML) 53 U/L (12-78); ALKALINE PHOSPHATASE 87 U/L (50-136); ASPARTATE AMINO TRANSFERASE 49 U/L (0-35); CALCIUM 8.9 mg/dL (8.4-10.5); GLUCOSE 106 mg/dL (70-110)
[2019-01-07 01:18] LABS: BILIRUBIN,URINE NEGATIVE (NEGATIVE); UROBILINOGEN,URINE NORMAL (NEGATIVE)
[2019-01-07 01:27] LABS: APPEARANCE,URINE CLEAR (CLEAR); UA COLOR YELLOW (YELLOW)
--- NOTE | 2019-01-07 01:31 | NUR ---
IV DC'D TIP INTACT, NO BLEEDING
--- NOTE | 2019-01-07 01:35 | NUR ---
DISCHARGE PATIENT CA0X3, VITALS STABLE UPON DISCHARGE, PATIENT STATES HE LIVES IN A TENT AND WILL WALK IN THE MORNING
--- NOTE | 2019-01-07 01:38 | DIREP ---
PROCEDURE:CHEST 1 VIEW COMPARISON:[facility], CR, XRAY CHEST SINGLE VW, 01/03/2019, 01:44 PM. INDICATIONS:cp FINDINGS: LUNGS/PLEURA:No focal consolidation, pleural effusion or pneumothorax. VASCULATURE:Normal. Unremarkable pulmonary vasculature. CARDIAC:Normal. No cardiac silhouette abnormality or cardiomegaly. MEDIASTINUM:Normal. No visible mass or adenopathy. BONES:Normal. No fracture or visible bony lesion. OTHER:Negative. CONCLUSION:No active cardiopulmonary process demonstrated. Dictated by: Dave Monteiro M.D. on 01/07/2019 at 01:36 AM
[2019-01-07 01:40] VITALS: BP 138/92
== END 2019-01-07 01:35 | disposition home or self-care (01) ==
LOC: ER 00:19 → EDBD 00:19 → ER 01:35
DX: F15.10 Other stimulant abuse, uncomplicated (principal); F17.210 Nicotine dependence, cigarettes, uncomplicated; N17.9 Acute kidney failure, unspecified; Z79.82 Long term (current) use of aspirin; Z88.0 Allergy status to penicillin; Z88.1 Allergy status to other antibiotic agents; Z88.2 Allergy status to sulfonamides
CPT/HCPCS: 36415; 71045; 80053; 80307; 81000; 82150; 82550; 83690; 83880; 84484; 85025; 85610; 85730; 93005; 99285; G0480; 80320; 80324; 80349

== ENCOUNTER 2019-02-25 18:40 | Observation (INO) | payer MEDICARE ==
[~2019-02-25] VITALS: Ht 198.1 cm; Wt 90.3 kg
[2019-02-25 18:41] VITALS: BP 152/90
[2019-02-25 18:49] VITALS: BP 152/90
[2019-02-25 19:12] LABS: BASOPHIL % 0.6 % (0.0-0.2); EOSINOPHIL # 0.1 10^3/uL (0.0-0.2); EOSINOPHIL % 1.3 % (0.0-5.0); LYMPHOCYTES # 2.2 10^3/uL (1.0-4.8); MEAN CELL HGB 32.8 pg (26-34); MEAN CELL HGB CONCENTRATION 35.9 g/dL (33-37); MEAN CORP VOLUME 91.4 fL (78-100); MEAN PLATELET VOLUME 8.9 fL (7.8-11.0); MONOCYTES # 0.5 10^3/uL (0.3-0.8); NEUTROPHIL # 2.6 10^3/uL (1.8-7.7); NEUTROPHILS % 47.1 % (41.0-85.0); RED CELL DISTRIBUTION WIDTH 13.2 % (11.5-14.5); WHITE BLOOD CELL 5.4 10^3/uL (4.5-11.0)
[2019-02-25] MEDS ORDERED: TORADOL IV STA (19:30)
[2019-02-25] MEDS ORDERED: NS 1000ML 1,000 ML IV STA (19:30)
[2019-02-25] MEDS ORDERED: NS 1000ML 1,000 ML ONE (19:37)
[2019-02-25] MEDS ORDERED: TORADOL ONE (19:37)
[2019-02-25 19:43] LABS: CALCIUM 8.5 mg/dL (8.4-10.5); CARBON DIOXIDE 27.8 mmol/L (20.0-32)
[2019-02-25 19:45] VITALS: BP 146/95
--- NOTE | 2019-02-25 19:45 | DIREP ---
PROCEDURE:CT ABD/PELVIS WITHOUT CONTRAST TECHNIQUE:Axial cuts were obtained through the abdomen and pelvis without IV contrast. The images were viewed at lung and soft tissue settings. Sagittal and coronal reconstructions are provided. COMPARISON:None. INDICATIONS:L flank pain FINDINGS: LOWER CHEST:The lung bases are clear. LIVER:Normal. BILIARY:Normal. PANCREAS:Normal. SPLEEN:Normal. URINARY TRACT:7 mm stone at the left ureteropelvic junction series 2, image 37 and series 48004, image 39 causing left-sided hydronephrosis. There are 3 other smaller stones in the left renal collecting system with the largest stone measuring 4 mm in the lower collecting system series 2, image 39. The left kidney is otherwise normal. The right kidney is normal. ADRENALS:Normal. AORTA/VASCULAR:Moderate arterial calcifications. RETROPERITONEUM:Normal. BOWEL/MESENTERY:Scattered diverticula in the sigmoid colon with no evidence of diverticulitis. The appendix is normal. ABDOMINAL WALL:Normal. PELVIS:Normal. BONES:Normal. OTHER:Normal. CONCLUSION: 1. 7 mm stone at the left ureteropelvic junction causing left-sided hydronephrosis. 2. There are 3 nonobstructing stones in the left renal collecting system. 3. Atherosclerosis. 4. Mild diverticulosis. Dictated by: Jomar Lopez M.D. on 02/25/2019 at 07:40 PM
--- NOTE | 2019-02-25 19:46 | ER.PDOC ---
General Chief Complaint: Flank Pain Stated Complaint: LEFT FLANK PAIN Time seen by MD: 19:45 Source: patient Exam Limitations: no limitations History of Present Illness Initial Comments Left flank pain since this morning. History of kidney stones. Severity/Quality: moderate, sharpness Radiation: no radiation Associated Symptoms: denies symptoms Exacerbated by: nothing Relieved By: nothing Allergies: Coded Allergies: Penicillins (Verified Allergy, Unknown, Rash, 07/30/16) sulfamethoxazole (Verified Allergy, Unknown, 07/30/16) trimethoprim (Verified Allergy, Unknown, 07/30/16) ciprofloxacin (Verified Adverse Reaction, Severe, TONGUE SWELLING, 07/30/16) Home Meds Discontinued Reported Medications Flavoxate Hcl (FLAVOXATE HCL) 100 Mg Tablet, 100 MG PO TID, #30 TABLET 08/02/16 Tramadol Hcl (TRAMADOL HCL) 50 Mg Tablet, 1 TAB PO Q4 for PAIN, #15 TAB 08/02/16 Guaifenesin (MUCINEX) 600 Mg Tablet.er, 1 TAB PO TID, #14 TAB 07/30/16 Discontinued Scripts Guaifenesin/Codeine Phosphate (GUAIFENESIN-CODEINE SYRUP) 118 Ml Liquid, 118 ML PO Q4 PRN for COUGH, #4 OZ Prov:ELVIA ZHANG MD 01/05/19 Doxycycline Hyclate (DOXYCYCLINE HYCLATE) 100 Mg Tablet, 100 MG PO BID for 5 Days Prov:ELVIA ZHANG MD 01/05/19 Vital Signs First Vital Signs Date Time Temp Pulse Resp B/P (MAP) Pulse Ox O2 Delivery O2 Flow Rate FiO2 02/25/19 18:41 98.3 88 16 96 Room Air 02/25/19 18:41 152/90 (110) Last Vital Signs Date Time Temp Pulse Resp B/P (MAP) Pulse Ox O2 Delivery O2 Flow Rate FiO2 02/25/19 18:49 98.3 79 16 02/25/19 18:41 152/90 (110) 96 Room Air Past Medical History Surgical History: no surgical history Social History Smoking: cigarettes Alcohol Use: none Drug Use: none Constitutional: no symptoms reported Respiratory: no symptoms reported Cardiovascular: no symptoms reported Gastrointestinal: no symptoms reported Genitourinary: see HPI All Other Systems: Reviewed and Negative Physical Exam General Appearance: No Apparent Distress, WD/WN Neck: Non-Tender, Full Range of Motion, Supple, Normal Inspection Respiratory: chest non-tender, lungs clear, normal breath sounds, no respiratory distress, no accessory muscle use Cardiovascular: Normal Peripheral Pulses, Regular Rate, Rhythm, No Edema, No Gallop, No JVD, No Murmur Gastrointestinal: Normal Bowel Sounds, Non Tender, Soft Back: Normal Inspection, No CVA Tenderness, No Vertebral Tenderness Extremities: Normal Range of Motion, Non-Tender, Normal Inspection, No Pedal Edema, No Calf Tenderness, Normal Capillary Refill, Pelvis Stable Neurologic/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: 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, No Motor/Sensory Deficits, Alert, Normal Mood/Affect, Oriented x 3 Skin: Normal Color, Warm/Dry Results/Orders Results/Orders Orders - ADONAY GOMEZ MD 0.9 % Sodium Chloride (Ns 1000ml) (02/25/19 19:37) Ketorolac Tromethamine (Toradol) (02/25/19 19:37) Ketorolac Tromethamine (Toradol) (02/25/19 19:30) 0.9 % Sodium Chloride (Ns 1000ml) (02/25/19 19:30) Vital Signs Date Time Temp Pulse Resp B/P (MAP) Pulse Ox O2 Delivery O2 Flow Rate FiO2 02/25/19 18:49 98.3 79 16 02/25/19 18:41 98.3 79 16 152/90 (110) 96 Room Air 02/25/19 18:41 98.3 88 16 96 Room Air Administered Medications Medications (Trade) Dose Ordered Sig/Ghislaine Route PRN Reason Start Time Stop Time Status Last Admin Dose Admin Ketorolac Tromethamine (Toradol) 30 mg STAT STAT IV 02/25/19 19:30 02/25/19 19:41 DC 02/25/19 20:34 30 MG Sodium Chloride 1,000 ml @ 1,200 mls/hr Q50M STAT IV 02/25/19 19:30 02/25/19 20:19 DC 02/25/19 20:34 1,200 MLS/HR Laboratory Tests Test 02/25/19 19:00 White Blood Count 5.4 10^3/uL (4.5-11.0) Red Blood Count 4.88 10^6/uL (4.50-5.90) Hemoglobin 16.0 g/dL (13.9-16.3) Hematocrit 44.6 % (37.0-53.0) Mean Corpuscular Volume 91.4 fL (78-100) Mean Corpuscular Hemoglobin 32.8 pg (26-34) Mean Corpuscular Hemoglobin Concent 35.9 g/dL (33-37) Red Cell Distribution Width 13.2 % (11.5-14.5) Platelet Count 217 10^3/uL (150-400) Mean Platelet Volume 8.9 fL (7.8-11.0) Neutrophils (%) (Auto) 47.1 % (41.0-85.0) Lymphocytes (%) (Auto) 41.0 % (24.0-44.0) Monocytes (%) (Auto) 10.0 % (5.0-12.0) Neutrophils # (Auto) 2.6 10^3/uL (1.8-7.7) Lymphocytes # (Auto) 2.2 10^3/uL (1.0-4.8) Monocytes # (Auto) 0.5 10^3/uL (0.3-0.8) Absolute Immature Granulocyte (auto 0 10^3 u/L (0-2) Immature Granulocytes % 0.00 % (0.00-0.50) Eosinophils % 1.3 % (0.0-5.0) Basophils % 0.6 % (0.0-0.2) H Basophils # 0.0 10^3/uL (0.0-0.1) Eosinophil Count 0.1 10^3/uL (0.0-0.2) Sodium Level 145 mmol/L (132-145) Potassium Level 3.4 mmol/L (3.6-5.2) L Chloride Level 111.0 mmol/L (96-109) H Carbon Dioxide Level 27.8 mmol/L (20.0-32) Anion Gap 9.6 Blood Urea Nitrogen 8 mg/dL (7-18) Creatinine 1.02 mg/dL (0.59-1.40) Estimated GFR () 90.5 (>/=60) BUN/Creatinine Ratio 7.0 Glucose Level 91 mg/dL (70-110) Calcium Level 8.5 mg/dL (8.4-10.5) Total Bilirubin 0.7 mg/dL (0.2-1.0) Aspartate Amino Transferase (AST) 20 U/L (0-35) Alanine Aminotransferase (ALT) 28 U/L (12-78) Alkaline Phosphatase 75 U/L (50-136) Total Protein 6.2 g/dL (6.4-8.2) L Albumin 3.4 g/dL (3.4-5.0) Globulin 2.[address] abdomen/pelvis: 7 mm stone at the left ureteropelvic junction causing left- sided hydronephrosis. 2. There are 3 nonobstructing stones in the left renal collecting system. 3. Atherosclerosis. 4. Mild diverticulosis. Course Sepsis Screening Results: Posi: NEGATIVE Sepsis Qualifier/Stage: NO DEFINITE RISK Duration or Total Time Spent w: 15 Vitals & review Data Vital Sign - Last 24 Hours 02/25/19 02/25/19 02/25/19 18:41 18:41 18:49 Temp 98.3 98.3 98.3 Pulse 88 79 79 Resp 16 16 16 B/P (MAP) 152/90 (110) Pulse Ox 96 96 O2 Delivery Room Air Room Air Laboratory Tests Test 02/25/19 19:00 White Blood Count 5.4 10^3/uL Red Blood Count 4.88 10^6/uL Hemoglobin 16.0 g/dL Hematocrit 44.6 % Mean Corpuscular Volume 91.4 fL Mean Corpuscular Hemoglobin 32.8 pg Mean Corpuscular Hemoglobin Concent 35.9 g/dL Red Cell Distribution Width 13.2 % Platelet Count 217 10^3/uL Mean Platelet Volume 8.9 fL Neutrophils (%) (Auto) 47.1 % Lymphocytes (%) (Auto) 41.0 % Monocytes (%) (Auto) 10.0 % Neutrophils # (Auto) 2.6 10^3/uL Lymphocytes # (Auto) 2.2 10^3/uL Monocytes # (Auto) 0.5 10^3/uL Absolute Immature Granulocyte (auto 0 10^3 u/L Immature Granulocytes % 0.00 % Eosinophils % 1.3 % Basophils % 0.6 % Basophils # 0.0 10^3/uL Eosinophil Count 0.1 10^3/uL Sodium Level 145 mmol/L Potassium Level 3.4 mmol/L Chloride Level 111.0 mmol/L Carbon Dioxide Level 27.8 mmol/L Anion Gap 9.6 Blood Urea Nitrogen 8 mg/dL Creatinine 1.02 mg/dL Estimated GFR () 90.5 BUN/Creatinine Ratio 7.0 Glucose Level 91 mg/dL Calcium Level 8.5 mg/dL Total Bilirubin 0.7 mg/dL Aspartate Amino Transf (AST/SGOT) 20 U/L Alanine Aminotransferase (ALT/SGPT) 28 U/L Alkaline Phosphatase 75 U/L Total Protein 6.2 g/dL Albumin 3.4 g/dL Globulin 2.8 Sepsis Infection Criteria Pres: None LEVEL 1 SEPSIS INFECTION CRITE: ABX Therapy LEVEL 2-SIRS (LIST ALL THAT AP: None/Not assessed Cardiovascular Evidence: Not Assessed or None Hematologic Evidence: None/Not assessed Hepatic Evidence: None/Not assessed Metabolic Evidence: None/Not assessed Neurological Evidence: None/Not assessed Respiratory Evidence: None/Not assessed Renal Evidence: None/Not assessed O2 Sat by Pulse Oximetry: 96 Departure Time of Disposition: 20:40 Disposition: 09 ADMITTED INPATIENT Impression: Primary Impression: Calculus of ureter Condition: Stable Referrals: GLORIA GUZMAN MD (PCP) PRIMARY CARE PROVIDER Comments Admitted to Dr. Guzman Duration or Time Spent with Pa: 60 mins ADONAY GOMEZ MD Feb 25, 2019 19:46
[2019-02-25] MEDS ORDERED: LACTATED RINGERS 1,000 ML STA (20:42)
[2019-02-25] MEDS ORDERED: ROCEPHIN 1,000 MG in NS 100ML 100 ML IV STA (20:42)
[2019-02-25 20:45] VITALS: BP 164/99
--- NOTE | 2019-02-25 20:47 | NUR ---
URINE PATIENT UNABLE TO GIVEN URINE SPECIMEN, EDP NOTIFIED. EDP STATES NOT NEEDED
--- NOTE | 2019-02-25 20:48 | PCM.EKG ---
[facility] Test Date: 2019-02-25 Test Time: 20:49:29 Pat Name: MAZIN GOMES Department: Room: 311 Gender: M Director Of Conservation: JOHNNY : 1960 Requested By: ADONAY GOMEZ Order Number: [id number] Reading MD: Adonay GOMEZ Measurements Intervals [place] Rate: 69 P: 66 AR: 158 QRS: 67 QRSD: 86 T: 72 QT: 388 QTc: 415 Interpretive Statements Normal sinus rhythm Normal ECG Compared to ECG 01/07/2019 00:38:08 Sinus tachycardia no longer present Electronically Signed On 03-01-2019 6:27:55 CDT by Adonay GOMEZ Please click the below link to view image of tracing.
[2019-02-25] MEDS ORDERED: ROCEPHIN ONE (20:49)
[2019-02-25] MEDS ORDERED: LACTATED RINGERS 1,000 ML ONE (20:49)
[2019-02-25 21:21] VITALS: BP 146/89
--- NOTE | 2019-02-25 21:25 | NUR ---
ARRIVAL PATIENT ARRIVED ON FLOOR VIA WHEEL CHAIR REPORT RECEIVED ASSUMED CARE.
--- NOTE | 2019-02-25 22:23 | NUR ---
IV DRESSING CHANGE IV STARTED IN AMBULANCE J LOOP AND DRESSING CHANGED.
[2019-02-25] MEDS: DILAUDID IV PRN (22:58)
[2019-02-25 23:44] VITALS: BP 141/80
--- NOTE | 2019-02-26 | NUR ---
NPO PATIENT SWITCH TO NPO PER ORDERS.
[2019-02-26] MEDS: DILAUDID IV PRN (03:19)
[2019-02-26 04:13] VITALS: BP 117/62
--- NOTE | 2019-02-26 05:15 | NUR ---
IV DRESSING IV DRESSING SOILED AN LOOSE AFTER SHOWER, IV DRESSING CHANGED.
[2019-02-26] MEDS ORDERED: LACTATED RINGERS 1,000 ML IV SCH ×2 (06:30→09:30)
--- NOTE | 2019-02-26 06:52 | NUR ---
URINE SAMPLE PATIENT STATED HE ATTEMPTED TO VOID ALL NIGHT BUT COULD NOT BECAUSE HE HAD NOTHING TO DRINK, PATIENT HAS HAD FLUIDS INFUSING LR @100. I REQUESTED HE TRY TO URINATE AGAIN AT 0630 PATIENT REFUSED AND SAID HE COULDN'T EVEN TRY BECAUSE HE HASN'T HAD ANYTHING TO DRINK.
--- NOTE | 2019-02-26 06:58 | NUR ---
REPORT REPORT GIVEN TO
--- NOTE | 2019-02-26 09:20 | NUR ---
AMA entered patient's room as he was getting up to pee. He turned around and stated "close that fucking door, ya'll been harassing me all morning!" I exited the room and called security. 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 I removed his IV and he started jerking his arm around and had some bleeding from site that he would not let me cover. I asked him to calm down and let me stop the bleeding. I applied some tissue and coban to the left hand IV site and informed the patient that it was a little tight and he should remove it in about 15-20 minutes. He did not acknowledge my instructions and was mumbling about me and the hospital. He signed the informed AMA form then finished dressing and left via ambulation from floor.
[2019-02-26] MEDS ORDERED: NORCO 7.5MG PO PRN (09:30)
[2019-02-26] MEDS ORDERED: DEMEROL IV PRN (09:30)
[2019-02-26] MEDS ORDERED: PHENERGAN IV PRN (09:30)
--- NOTE | 2019-02-26 09:39 | NUR ---
DR. Longoria OR crew and Dr. Longoria informed of patient leaving AMA.
--- NOTE | 2019-02-26 09:44 | NUR ---
DISCHARGE PLAN/LEFT AMA PATIENT LEFT AMA BEFORE CM WAS ABLE TO SPEAK TO HIM.
== END 2019-02-26 09:30 | disposition left against medical advice (07) ==
LOC: EDBD 18:40 → ER 18:40 → MS 20:45
PROVIDERS: ADMIT Urology; ATTEND Urology
DX: N13.2 Hydronephrosis with renal and ureteral calculous obstruction (principal); K57.90 Diverticulosis of intestine, part unspecified, without perforation or abscess without bleeding; Z79.899 Other long term (current) drug therapy; Z88.0 Allergy status to penicillin; Z88.8 Allergy status to other drugs, medicaments and biological substances
CPT/HCPCS: 36415 ×2; 74176 ×2; 80053 ×2; 85025 ×2; 85610; 85730; 93005; 96365; 96375; 96376; 99284; G0378 ×13; J0696 ×2; J1170 ×2; J1885 ×2; J7030; J7050; J7120 ×2; 96374; 99285

== ENCOUNTER 2019-02-26 22:00 | Emergency (ER) | payer MEDICAID, MEDICARE ==
[~2019-02-26] VITALS: Ht 198.1 cm; Wt 90.7 kg
[2019-02-26 22:06] VITALS: BP 145/75
--- NOTE | 2019-02-26 22:23 | ER.PDOC ---
General Chief Complaint: Flank Pain Stated Complaint: POSS KIDNEY STONE Time seen by MD: 22:01 Source: patient Exam Limitations: no limitations History of Present Illness Initial Comments one day of left flank pain, patient was seen in er and dx with kidney stone was admitted and left ama, patient states he was supposed to have a stent in hospital. Severity/Quality: moderate Radiation: flank Associated Symptoms: denies symptoms Allergies: Coded Allergies: Penicillins (Verified Allergy, Unknown, Rash, 07/30/16) sulfamethoxazole (Verified Allergy, Unknown, 07/30/16) trimethoprim (Verified Allergy, Unknown, 07/30/16) ciprofloxacin (Verified Adverse Reaction, Severe, TONGUE SWELLING, 07/30/16) Home Meds Discontinued Reported Medications Flavoxate Hcl (FLAVOXATE HCL) 100 Mg Tablet, 100 MG PO TID, #30 TABLET 08/02/16 Tramadol Hcl (TRAMADOL HCL) 50 Mg Tablet, 1 TAB PO Q4 for PAIN, #15 TAB 08/02/16 Guaifenesin (MUCINEX) 600 Mg Tablet.er, 1 TAB PO TID, #14 TAB 07/30/16 Discontinued Scripts Guaifenesin/Codeine Phosphate (GUAIFENESIN-CODEINE SYRUP) 118 Ml Liquid, 118 ML PO Q4 PRN for COUGH, #4 OZ Prov:ELVIA ZHANG MD 01/05/19 Doxycycline Hyclate (DOXYCYCLINE HYCLATE) 100 Mg Tablet, 100 MG PO BID for 5 Days Prov:ELVIA ZHANG MD 01/05/19 Vital Signs First Vital Signs Date Time Temp Pulse Resp B/P (MAP) Pulse Ox O2 Delivery O2 Flow Rate FiO2 02/26/19 04:13 78 02/26/19 22:06 97.7 18 96 Room Air 02/26/19 22:06 145/75 (98) Last Vital Signs Date Time Temp Pulse Resp B/P (MAP) Pulse Ox O2 Delivery O2 Flow Rate FiO2 02/26/19 22:06 97.7 73 18 145/75 (98) 96 Room Air Past Medical History Medical History: other Surgical History: no surgical history Social History Smoking: less than 1 pack/day Alcohol Use: none Drug Use: Meth Constitutional: denies chills, denies fever Respiratory: denies cough, denies shortness of breath Cardiovascular: denies chest pain Gastrointestinal: denies diarrhea Genitourinary: denies discharge; flank pain; denies pain Musculoskeletal: denies neck pain Skin: denies rash Psychiatric/Neurological: denies headache Hematologic/Lymphatic: denies anemia Physical Exam General Appearance: No Apparent Distress, WD/WN HEENT: PERRL/EOMI, Normal ENT Inspection Neck: Non-Tender, Full Range of Motion Respiratory: chest non-tender, lungs clear, normal breath sounds Cardiovascular: Normal Peripheral Pulses, Regular Rate, Rhythm Gastrointestinal: Other Back: No Vertebral Tenderness, CVA Tenderness (L) Extremities: Normal Range of Motion, Non-Tender Neurologic/Psychiatric: specialist 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 II-XII NML as Tested, No Motor/Sensory Deficits, Alert, Normal Mood/Affect, Oriented x 3 Skin: Normal Color Results/Orders Results/Orders Orders - JOURDAN FISCHER MD Cbc With Auto Diff (02/26/19 22:17) Comprehensive Metabolic Panel (02/26/19 22:17) Urinalysis (02/26/19 22:17) Saline Lock (02/26/19 22:17) Ct Abd/Pelvis Wo Iv Contrast (02/26/19 22:17) Ketorolac Tromethamine (Toradol) (02/26/19 22:30) Ketorolac Tromethamine (Toradol) (02/26/19 23:02) Vital Signs Date Time Temp Pulse Resp B/P (MAP) Pulse Ox O2 Delivery O2 Flow Rate FiO2 02/26/19 22:06 97.7 73 18 145/75 (98) 96 Room Air 02/26/19 22:06 97.7 73 18 02/26/19 22:06 97.7 73 18 96 Room Air 02/26/19 04:13 78 Administered Medications Medications (Trade) Dose Ordered Sig/Ghislaine Route PRN Reason Start Time Stop Time Status Last Admin Dose Admin Ketorolac Tromethamine (Toradol) 30 mg STAT ONCE IV 02/26/19 22:30 02/26/19 22:31 UNV 02/26/19 23:11 30 MG Laboratory Tests Test 02/26/19 22:30 White Blood Count 3.7 10^3/uL (4.5-11.0) L Red Blood Count 4.69 10^6/uL (4.50-5.90) Hemoglobin 15.2 g/dL (13.9-16.3) Hematocrit 43.2 % (37.0-53.0) Mean Corpuscular Volume 92.1 fL (78-100) Mean Corpuscular Hemoglobin 32.4 pg (26-34) Mean Corpuscular Hemoglobin Concent 35.2 g/dL (33-37) Red Cell Distribution Width 13.4 % (11.5-14.5) Platelet Count 186 10^3/uL (150-400) Mean Platelet Volume 8.7 fL (7.8-11.0) Neutrophils (%) (Auto) 37.7 % (41.0-85.0) L Lymphocytes (%) (Auto) 49.0 % (24.0-44.0) H Monocytes (%) (Auto) 9.8 % (5.0-12.0) Neutrophils # (Auto) 1.4 10^3/uL (1.8-7.7) L Lymphocytes # (Auto) 1.8 10^3/uL (1.0-4.8) Monocytes # (Auto) 0.4 10^3/uL (0.3-0.8) Absolute Immature Granulocyte (auto 0 10^3 u/L (0-2) Immature Granulocytes % 0.00 % (0.00-0.50) Eosinophils % 3.0 % (0.0-5.0) Basophils % 0.5 % (0.0-0.2) H Basophils # 0.0 10^3/uL (0.0-0.1) Eosinophil Count 0.1 10^3/uL (0.0-0.2) Sodium Level 143 mmol/L (132-145) Potassium Level 3.3 mmol/L (3.6-5.2) L Chloride Level 110.0 mmol/L (96-109) H Carbon Dioxide Level 28.6 mmol/L (20.0-32) Anion Gap 7.7 Blood Urea Nitrogen 10 mg/dL (7-18) Creatinine 1.16 mg/dL (0.59-1.40) Estimated GFR () 78.0 (>/=60) BUN/Creatinine Ratio 8.0 Glucose Level 69 mg/dL (70-110) L Calcium Level 8.4 mg/dL (8.4-10.5) Total Bilirubin 0.7 mg/dL (0.2-1.0) Aspartate Amino Transferase (AST) 20 U/L (0-35) Alanine Aminotransferase (ALT) 25 U/L (12-78) Alkaline Phosphatase 71 U/L (50-136) Total Protein 5.7 g/dL (6.4-8.2) L Albumin 3.0 g/dL (3.4-5.0) L Globulin 2.7 Progress Progress discussed case with dr guzman urologist who stated the patient will have to see a urologist [place] because the patient left ama from hospital and because of that dr guzman stated he will have to cared for by another urologist. patient pain is under control with toradol, will refer patient to urologist from [place] for evaluation. patient was informed of this and got upset and left against medical advice, patient is alert and lucent and able to make medical de cisions patient understands cannot rule out urine infection as he refused to give urine sample in er today, the infection could be life threatening, patient instructed to call urologist from [place] in am. Course Sepsis Screening Results: Posi: NEGATIVE Sepsis Qualifier/Stage: NO DEFINITE RISK Duration or Total Time Spent w: 60 mins Vitals & review Data Vital Sign - Last 24 Hours 02/26/19 02/26/19 02/26/19 02/26/19 04:13 22:06 22:06 22:06 Temp 97.7 97.7 97.7 Pulse 78 73 73 73 Resp 18 18 18 B/P (MAP) 145/75 (98) Pulse Ox 96 96 O2 Delivery Room Air Room Air Laboratory Tests Test 02/26/19 22:30 White Blood Count 3.7 10^3/uL Red Blood Count 4.69 10^6/uL Hemoglobin 15.2 g/dL Hematocrit 43.2 % Mean Corpuscular Volume 92.1 fL Mean Corpuscular Hemoglobin 32.4 pg Mean Corpuscular Hemoglobin Concent 35.2 g/dL Red Cell Distribution Width 13.4 % Platelet Count 186 10^3/uL Mean Platelet Volume 8.7 fL Neutrophils (%) (Auto) 37.7 % Lymphocytes (%) (Auto) 49.0 % Monocytes (%) (Auto) 9.8 % Neutrophils # (Auto) 1.4 10^3/uL Lymphocytes # (Auto) 1.8 10^3/uL Monocytes # (Auto) 0.4 10^3/uL Absolute Immature Granulocyte (auto 0 10^3 u/L Immature Granulocytes % 0.00 % Eosinophils % 3.0 % Basophils % 0.5 % Basophils # 0.0 10^3/uL Eosinophil Count 0.1 10^3/uL Sodium Level 143 mmol/L Potassium Level 3.3 mmol/L Chloride Level 110.0 mmol/L Carbon Dioxide Level 28.6 mmol/L Anion Gap 7.7 Blood Urea Nitrogen 10 mg/dL Creatinine 1.16 mg/dL Estimated GFR () 78.0 BUN/Creatinine Ratio 8.0 Glucose Level 69 mg/dL Calcium Level 8.4 mg/dL Total Bilirubin 0.7 mg/dL Aspartate Amino Transf (AST/SGOT) 20 U/L Alanine Aminotransferase (ALT/SGPT) 25 U/L Alkaline Phosphatase 71 U/L Total Protein 5.7 g/dL Albumin 3.0 g/dL Globulin 2.7 Sepsis Infection Criteria Pres: None LEVEL 1 SEPSIS INFECTION CRITE: ABX Therapy LEVEL 2-SIRS (LIST ALL THAT AP: None/Not assessed Cardiovascular Evidence: Not Assessed or None Hematologic Evidence: None/Not assessed Hepatic Evidence: None/Not assessed Metabolic Evidence: None/Not assessed Neurological Evidence: None/Not assessed Respiratory Evidence: None/Not assessed Renal Evidence: None/Not assessed O2 Sat by Pulse Oximetry: 96 Departure Time of Disposition: 23:24 Disposition: 07 AGAINST MEDICAL ADVICE Impression: Primary Impression: Calculus of ureter Additional Impression: Ureterolithiasis Condition: Against Medical Advice Patient Instructions: Kidney Stones, Ureteral Colic Referrals: GLORIA GUZMAN MD (PCP) PRIMARY CARE PROVIDER Additional Instructions: you are being discharged against medical advice, you have a large kidney stone and need to see a urologist of your choice from [place] as you left against medical advice from the hospital the urologist from this facility dr guzman states you need to see different urologist, call [place] [facility] at [phone] in the morning for appointment, return for any worsening symptoms, you are being discharged against medical advice and could have a urine infection that could be life threatening and you have a stone that may not pass and should be admitted to hospital, you are being discharged against medical advice. Scripts No Active Prescriptions or Reported Meds Duration or Time Spent with Pa: 15 Problem Qualifiers JOURDAN FISCHER MD Feb 26, 2019 22:23
[2019-02-26] MEDS ORDERED: TORADOL IV ONE (22:30)
[2019-02-26 22:39] LABS: BASOPHIL % 0.5 % (0.0-0.2); EOSINOPHIL # 0.1 10^3/uL (0.0-0.2); HEMOGLOBIN 15.2 g/dL (13.9-16.3); LYMPHOCYTES # 1.8 10^3/uL (1.0-4.8); MEAN CELL HGB 32.4 pg (26-34); MEAN CELL HGB CONCENTRATION 35.2 g/dL (33-37); MEAN CORP VOLUME 92.1 fL (78-100); MEAN PLATELET VOLUME 8.7 fL (7.8-11.0); MONOCYTES # 0.4 10^3/uL (0.3-0.8); MONOCYTES % 9.8 % (5.0-12.0); NEUTROPHIL # 1.4 10^3/uL (1.8-7.7); NEUTROPHILS % 37.7 % (41.0-85.0); RED CELL DISTRIBUTION WIDTH 13.4 % (11.5-14.5); WHITE BLOOD CELL 3.7 10^3/uL (4.5-11.0)
--- NOTE | 2019-02-26 22:45 | DIREP ---
PROCEDURE:CT ABDOMEN/PELVIS W/O CONTRAST COMPARISON:[facility], CT, CT ABD/PELVIS W/O, 02/25/2019, 07:24 PM. INDICATIONS:left flank pain with history of kidney stone TECHNIQUE:Axial images were created through the abdomen and pelvis without intravenous contrast material. No oral contrast was administered. Sagittal and coronal reconstructions were performed from source images. FINDINGS: LUNG BASES:No suspicious airspace consolidation or pleural effusion. LIVER:No suspicious focal hepatic lesion. BILIARY:The gallbladder is nondistended. No radiopaque calculi. No significant intrahepatic or extrahepatic biliary ductal dilatation. PANCREAS:No suspicious pancreatic abnormality. SPLEEN:The spleen is not significantly enlarged. No focal splenic lesion identified. ADRENALS:The adrenal glands are unremarkable. URINARY TRACT:Left nephrolithiasis. There is an approximate 7 mm calculus within the proximal left ureter with associated subtle fullness of the left renal pelvis and left intrarenal collecting system. No right ureteral calculi or right hydronephrosis. AORTA/VASCULAR:No aneurysmal dilatation. Scattered atherosclerotic calcifications. RETROPERITONEUM:No suspicious retroperitoneal lymphadenopathy. BOWEL/MESENTERY:No evidence for small bowel obstruction. Scattered distal colonic diverticulosis without evidence to suggest acute diverticulitis. Overall [id number] fecal burden. Normal appendix. No free air. ABDOMINAL WALL:No significant hernia. PELVIC ORGANS:Urinary bladder is not significantly distended. There is mild diffuse bladder wall thickening which may reflect the nondistended state. The prostate gland is slightly prominent. No free fluid within the pelvis. BONES:Degenerative changes of the spine. No acute abnormality. CONCLUSION: 1. Approximate 7 mm calculus within the proximal left ureter with subtle fullness of the left intrarenal collecting system. Left nephrolithiasis. 2. Additional findings as discussed above. Dictated by: Landon Walker M.D. On 02/26/2019 at 10:38 PM
[2019-02-26 22:54] LABS: CALCIUM 8.4 mg/dL (8.4-10.5); CARBON DIOXIDE 28.6 mmol/L (20.0-32)
[2019-02-26 23:00] VITALS: BP 134/75
[2019-02-26] MEDS ORDERED: TORADOL ONE (23:02)
--- NOTE | 2019-02-26 23:18 | NUR ---
DR MEGAN FISCHER ON PHONE CONSULTING WITH DR GUZMAN.
--- NOTE | 2019-02-26 23:24 | NUR ---
UPDATE DR FISCHER IN ROOM SPEAKING WITH PATIENT. PATIENT STATES THAT HE DOES NOT WANT TO STAY AND WISHES TO LEAVE. DR FISCHER EXPLAINED RISKS OF LEAVING TO PATIENT AND HE STILL STATES THAT HE WANTS TO LEAVE. RN AT BEDSIDE TO HAVE PATIENT SIGN AMA FORM; PATIENT REFUSES TO SIGN. MD AALIYAH AND MARGARITO, CHARGE NURSE NOTIFIED. IV DISCONTINUED WITH TIP INTACT. PRESSURE DRESSING APPLIED. PATIENT IS AAO X4. BREATHING EVEN, UNLABORED. NO SIGNS OF DISTRESS NOTED. VSS. PATIENT AMBULATORY WITH STEADY GAIT OUT OF ER.
== END 2019-02-26 23:30 | disposition left against medical advice (07) ==
LOC: ER 22:00 → EEVIPCON 22:00 → ER 23:30
DX: N20.1 Calculus of ureter (principal); F17.200 Nicotine dependence, unspecified, uncomplicated; Z88.0 Allergy status to penicillin; Z88.1 Allergy status to other antibiotic agents; Z88.2 Allergy status to sulfonamides
CPT/HCPCS: 36415; 74176; 80053; 85025; 96374; 99285; J1885

== ENCOUNTER 2019-02-27 09:36 | Emergency (ER) | payer MEDICARE ==
[~2019-02-27] VITALS: Ht 198.1 cm; Wt 89.8 kg
[2019-02-27 09:36] VITALS: BP 150/93
[2019-02-27] MEDS ORDERED: TORADOL IM STA (09:40)
[2019-02-27] MEDS ORDERED: MORPHINE SULFATE IM STA (09:40)
[2019-02-27] MEDS ORDERED: ZOFRAN ODT SL STA (09:42)
--- NOTE | 2019-02-27 09:45 | NUR ---
STATUS PT YELLING OUT FOR HELP, THAT HE FELL ON THE FLOOR. ON ARRIVAL PT WAS FOUND LAYING ON FLOOR. I ASKED PT WHAT HAPPENED AND HE STATED HE ROLLED OFF OF BED. I TOLD PT LETS GET BACK UP AND HE GOT UP ON HIS OWN AND SAID F*CK YOU AND LAID BACK DOWN ON BED. PT BACK UP ON BED, BSM ON, SIDERAIL UP X2, BED IN LOW POSITION. NO INJURIES NOTED AT THIS TIME.
[2019-02-27 09:50] VITALS: BP 150/93
--- NOTE | 2019-02-27 09:56 | NUR ---
UROLOGY PT STATES HE DOES NOT WANT TO SEE DR GUZMAN. INSTRUCTED PT THAT DR GUZMAN IS THE ONLY UROLOGIST IN [place]. HE STATES HE DOES NOT WANT HIM. REPORTED TO EDP.
--- NOTE | 2019-02-27 09:56 | NUR ---
[facility] DR CEBALLOS ON TRANSFER LINE WITH [facility].
[2019-02-27] MEDS ORDERED: ZOFRAN ODT ONE (09:57)
[2019-02-27] MEDS ORDERED: TORADOL ONE (09:57)
[2019-02-27] MEDS ORDERED: MORPHINE SULFATE ONE (09:58)
--- NOTE | 2019-02-27 10:10 | ER.PDOC ---
General Chief Complaint: Requesting Medical Care Stated Complaint: FLANK PAIN Time seen by MD: 10:00 Source: patient Exam Limitations: no limitations History of Present Illness Initial Comments h/o 7 mm calculus l ureter with hydro Timing/Duration: 1 week Severity/Quality: severe, sharpness Allergies: Coded Allergies: Penicillins (Verified Allergy, Unknown, Rash, 07/30/16) sulfamethoxazole (Verified Allergy, Unknown, 07/30/16) trimethoprim (Verified Allergy, Unknown, 07/30/16) ciprofloxacin (Verified Adverse Reaction, Severe, TONGUE SWELLING, 07/30/16) Home Meds Discontinued Reported Medications Flavoxate Hcl (FLAVOXATE HCL) 100 Mg Tablet, 100 MG PO TID, #30 TABLET 08/02/16 Tramadol Hcl (TRAMADOL HCL) 50 Mg Tablet, 1 TAB PO Q4 for PAIN, #15 TAB 08/02/16 Guaifenesin (MUCINEX) 600 Mg Tablet.er, 1 TAB PO TID, #14 TAB 07/30/16 Discontinued Scripts Guaifenesin/Codeine Phosphate (GUAIFENESIN-CODEINE SYRUP) 118 Ml Liquid, 118 ML PO Q4 PRN for COUGH, #4 OZ Prov:ELVIA ZHANG MD 01/05/19 Doxycycline Hyclate (DOXYCYCLINE HYCLATE) 100 Mg Tablet, 100 MG PO BID for 5 Days Prov:ELVIA ZHANG MD 01/05/19 Vital Signs First Vital Signs Date Time Temp Pulse Resp B/P (MAP) Pulse Ox O2 Delivery O2 Flow Rate FiO2 02/26/19 23:00 71 02/27/19 09:36 97.7 16 02/27/19 09:36 98 Room Air 02/27/19 09:50 150/93 (112) Last Vital Signs Date Time Temp Pulse Resp B/P (MAP) Pulse Ox O2 Delivery O2 Flow Rate FiO2 02/27/19 09:50 97.7 68 16 150/93 (112) 98 Room Air Past Medical History Medical History: cancer, other Surgical History: turp/tumt Social History Smoking: cigar, greater than 1 pack/day Alcohol Use: none Drug Use: none, other Reviewed Nursing Reviewed: Vital Signs, Abn. Noted All Other Systems: Reviewed and Negative Physical Exam General Appearance: No Apparent Distress HEENT: PERRL/EOMI Neck: Non-Tender, Full Range of Motion, Supple, Normal Inspection Respiratory: chest non-tender, lungs clear, normal breath sounds, no respiratory distress, no accessory muscle use Cardiovascular: Normal Peripheral Pulses, Regular Rate, Rhythm, No Edema, No Gallop, No JVD, No Murmur Gastrointestinal: Tenderness Back: Normal Inspection, No Vertebral Tenderness, CVA Tenderness (L) Extremities: Normal Range of Motion, Non-Tender, Normal Inspection, No Pedal Edema, No Calf Tenderness, Normal Capillary Refill, Pelvis Stable 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 NML as Tested, No Motor/Sensory Deficits, Alert, Normal Mood/Affect, Oriented x 3 Skin: Normal Color, Warm/Dry Lymphatic: No Adenopathy Results/Orders Results/Orders Orders - SHAMIKA CEBALLOS MD Ketorolac Tromethamine (Toradol) (02/27/19 09:40) Morphine Sulfate (Morphine Sulfate) (02/27/19 09:40) Ondansetron (Zofran Odt) (02/27/19 09:42) Ondansetron (Zofran Odt) (02/27/19 09:57) Ketorolac Tromethamine (Toradol) (02/27/19 09:57) Morphine Sulfate (Morphine Sulfate) (02/27/19 09:58) Vital Signs Date Time Temp Pulse Resp B/P (MAP) Pulse Ox O2 Delivery O2 Flow Rate FiO2 02/27/19 09:50 97.7 68 16 150/93 (112) 98 Room Air 02/27/19 09:36 97.7 68 16 98 Room Air 02/27/19 09:36 97.7 68 16 02/26/19 23:00 71 Consult/PCP Time Consult/PCP Called: 10:00 Consult/PCP: dr wilder Reason/Comments: PATIENT REFUSAL TO SEE DR GUZMAN Course Sepsis Screening Results: Posi: NEGATIVE Sepsis Qualifier/Stage: NO DEFINITE RISK Duration or Total Time Spent w: 15 Vitals & review Data Vital Sign - Last 24 Hours 02/26/19 02/27/19 02/27/19 02/27/19 23:00 09:36 09:36 09:50 Temp 97.7 97.7 97.7 Pulse 71 68 68 68 Resp 16 16 16 B/P (MAP) 150/93 (112) Pulse Ox 98 98 O2 Delivery Room Air Room Air Sepsis Infection Criteria Pres: None LEVEL 1 SEPSIS INFECTION CRITE: ABX Therapy LEVEL 2-SIRS (LIST ALL THAT AP: None/Not assessed Cardiovascular Evidence: Not Assessed or None Hematologic Evidence: None/Not assessed Hepatic Evidence: None/Not assessed Metabolic Evidence: None/Not assessed Neurological Evidence: None/Not assessed Respiratory Evidence: None/Not assessed Renal Evidence: None/Not assessed O2 Sat by Pulse Oximetry: 98 Departure Time of Disposition: 10:33 Disposition: 01 HOME, SELF-CARE Impression: Primary Impression: Calculus of ureter Condition: Improved Referrals: GLORIA GUZMAN MD (PCP) PRIMARY CARE PROVIDER Scripts No Active Prescriptions or Reported Meds Duration or Time Spent with Pa: 20 min SHAMIKA CEBALLOS MD Feb 27, 2019 10:10
[2019-02-27 10:30] VITALS: BP 162/88
--- NOTE | 2019-02-27 10:42 | NUR ---
STATUS ATTEMPTED TO START AN IV TO R FOREARM, PT BEGAN CUSSING AND YELLING TO STOP AND TO GET A REAL NURSE IN HERE TO DO THIS. NEEDLE TAKEN OUT, GAUZE PLACED OVER SITE. SISTER AT BEDSIDE. REPORTED TO EDP.
--- NOTE | 2019-02-27 10:47 | NUR ---
ED DIRECTOR NOTIFIED PAMI THAT PT REFUSES THIS RN TO START IV.
[2019-02-27] MEDS ORDERED: DILAUDID IV STA (11:03)
--- NOTE | 2019-02-27 11:25 | NUR ---
transfer PT TAKEN BY EMS ON STRETCHER. REPORT GIVEN TO EMS STAFF THAT PT REFUSED FOR THIS RN TO PLACE IV.
== END 2019-02-27 11:25 | disposition home or self-care (01) ==
LOC: EDBD 09:36 → ER 09:36 → EDUNIT# 09:36 → ER 11:25
DX: N20.1 Calculus of ureter (principal); F17.200 Nicotine dependence, unspecified, uncomplicated; Z85.9 Personal history of malignant neoplasm, unspecified; Z88.0 Allergy status to penicillin; Z88.1 Allergy status to other antibiotic agents; Z88.2 Allergy status to sulfonamides; Z79.891 Long term (current) use of opiate analgesic
CPT/HCPCS: 96372 ×2; 99284; J1885; J2270; Q0162

== ENCOUNTER 2019-03-26 09:36 | Emergency (ER) | payer MEDICARE ==
[~2019-03-26] VITALS: Ht 198.1 cm; Wt 95.3 kg
[2019-03-26 09:53] VITALS: BP 144/82
[2019-03-26 09:54] VITALS: BP 144/82
--- NOTE | 2019-03-26 09:54 | NUR ---
ARRIVAL PATIENT ARRIVED TO [facility] AMBULATORY, C/O OF "PLASTIC PEELING FROM TESTICLES", PATIENT WAS SEEN IN THE LAST WEEK IN THE [facility] FOR KIDNEY STONES. TODAY HIS TESTICLES ARE CAUSING HIM PROBLEMS TODAY, DOCTOR LIN TO ROOM TO SEE PATIENT.
[2019-03-26] MEDS ORDERED: KENALOG-40 ONE (10:04)
[2019-03-26] MEDS: KENALOG-40 IM STA (10:08)
--- NOTE | 2019-03-26 10:12 | ER.PDOC ---
General Chief Complaint: Male Stated Complaint: SCROTAL SKIN IRRITATION Time seen by MD: 10:00 Source: patient Exam Limitations: no limitations History of Present Illness Timing/Duration: 24 hours Severity: mild Quality: itchy, painful Identified Cause: yes When: ADHESIVE TAPE USE FOR URETERIC STENTS Prior symptoms/Treatment: Recenly Seen, Treated by Doctor Allergies: Coded Allergies: Penicillins (Verified Allergy, Unknown, Rash, 07/30/16) sulfamethoxazole (Verified Allergy, Unknown, 07/30/16) trimethoprim (Verified Allergy, Unknown, 07/30/16) ciprofloxacin (Verified Adverse Reaction, Severe, TONGUE SWELLING, 07/30/16) Home Meds No Active Prescriptions or Reported Meds Past Medical History Medical History: no pertinent history, other Surgical History: other Social History Smoking: cigarettes Alcohol Use: none Drug Use: none Reviewed Nursing Reviewed: Vital Signs, Abn. Noted All Other Systems: Reviewed and Negative Physical Exam General Appearance: alert, no distress Location: other (SCROTAL) Character: symmetric With: scaling, well defined boarders, inflammation 1 - SCROTAL LESION Extremities: non-tender, nml ROM, no edema EENT: eyes nml inspection, lips/gums nml, pharynx nml Neck: trachea midline, no swelling Respiratory: no resp. distress, breath sounds nml CVS: reg. rate & rhythm, heart sounds nml Abdomen: non-tender, no organomegaly NEURO/PSYCH: oriented x 3, CN's nml as tested, motor nml, sensation nml, mood/affect nml Results/Orders Results/Orders Orders - SHAMIKA CEBALLOS MD Triamcinolone Acetonide (Kenalog-40) (03/26/19 10:00) Triamcinolone Acetonide (Kenalog-40) (03/26/19 10:04) Vital Signs Date Time Temp Pulse Resp B/P (MAP) Pulse Ox O2 Delivery O2 Flow Rate FiO2 03/26/19 09:54 98.9 89 16 144/82 (102) 98 Room Air 03/26/19 09:53 98.9 89 16 03/26/19 09:51 98.9 89 16 98 Room Air Departure Time of Disposition: 10:33 Disposition: 01 HOME, SELF-CARE Impression: Primary Impression: Contact dermatitis Condition: Stable Referrals: GLORIA GUZMAN MD (PCP) PRIMARY CARE PROVIDER Scripts No Active Prescriptions or Reported Meds Duration or Time Spent with Pa: 16 MIN SHAMIKA CEBALLOS MD Mar 26, 2019 10:12
[2019-03-26 10:17] VITALS: BP 144/82
== END 2019-03-26 10:24 | disposition home or self-care (01) ==
LOC: ER 09:36
DX: L25.9 Unspecified contact dermatitis, unspecified cause (principal); F17.210 Nicotine dependence, cigarettes, uncomplicated; Z88.0 Allergy status to penicillin; Z88.1 Allergy status to other antibiotic agents; Z88.2 Allergy status to sulfonamides
CPT/HCPCS: 96372; 99283; J3301

== ENCOUNTER 2019-06-06 07:48 | Emergency (ER) | payer MEDICARE ==
[~2019-06-06] VITALS: Ht 198.1 cm; Wt 95.3 kg
[2019-06-06 07:57] VITALS: BP 160/95
--- NOTE | 2019-06-06 08:10 | ER.PDOC ---
General Chief Complaint: Requesting Medical Care Stated Complaint: BITE Time seen by MD: 07:58 Source: patient Exam Limitations: no limitations History of Present Illness Initial Comments Pt reports he was bit in the L thumb several hours ago (6-8 hours) by "a two- headed white snake that someone hid in my air-conditioner". Pt has changing/inconsistent story from nursing triage as well. Pt has a scratch on his thumb, but says that was not where he was bit. Points to IP joint on dorsal thumb. Denies fever Where: home Animal: other Context of Attack: other Severity of Injury: bitten Injury Location: upper extremity Allergies: Coded Allergies: Penicillins (Verified Allergy, Unknown, Rash, 07/30/16) sulfamethoxazole (Verified Allergy, Unknown, 07/30/16) trimethoprim (Verified Allergy, Unknown, 07/30/16) ciprofloxacin (Verified Adverse Reaction, Severe, TONGUE SWELLING, 07/30/16) Home Meds No Active Prescriptions or Reported Meds Past Medical History Medical History: other Surgical History: other Social History Drug Use: none Review of Systems Constitutional: no symptoms reported Eyes: no symptoms reported Throat: no symptoms reported Respiratory: no symptoms reported Cardiovascular: no symptoms reported Gastrointestinal: no symptoms reported Musculoskeletal: see HPI Skin: see HPI All Other Systems: Reviewed and Negative Physical Exam General Appearance: alert, other Skin: see diagram Psych: other (anxious, restless) HEENT: atraumatic, PERRL Resp/CVS: chest non-tender Abdomen: nml inspection Back: nml inspection Extremities: see diagram 1 - small skin avulsion, no puncture wound 2 - area of callous, no swelling, redness, tenderness Progress Progress Pt admits to meth use as recently as yesterday. Pt appears to be hallucinating, as no evidence of snake bite, let alone a rattlesnake, is identified. Pt will be discharged home. Course Sepsis Screening Results: Posi: NEGATIVE Sepsis Qualifier/Stage: NO DEFINITE RISK Duration or Total Time Spent w: 16 MIN Sepsis Infection Criteria Pres: None LEVEL 1 SEPSIS INFECTION CRITE: ABX Therapy LEVEL 2-SIRS (LIST ALL THAT AP: None/Not assessed Cardiovascular Evidence: Not Assessed or None Hematologic Evidence: None/Not assessed Hepatic Evidence: None/Not assessed Metabolic Evidence: None/Not assessed Neurological Evidence: None/Not assessed Respiratory Evidence: None/Not assessed Renal Evidence: None/Not assessed Departure Time of Disposition: 08:11 Disposition: 01 HOME, SELF-CARE Impression: Primary Impression: Hallucination, drug-induced Additional Impression: Methamphetamine abuse Condition: Stable Referrals: GLORIA GZUMAN MD (PCP) PRIMARY CARE PROVIDER Scripts No Active Prescriptions or Reported Meds Duration or Time Spent with Pa: 15 Problem Qualifiers DONNELL MCCAIN DO Jun 06, 2019 08:10
== END 2019-06-06 08:33 | disposition home or self-care (01) ==
LOC: ER 07:48
DX: F15.10 Other stimulant abuse, uncomplicated (principal); R44.2 Other hallucinations; Z88.0 Allergy status to penicillin; Z88.1 Allergy status to other antibiotic agents; Z88.2 Allergy status to sulfonamides
CPT/HCPCS: 99281

== ENCOUNTER 2019-06-11 07:02 | Emergency (ER) | payer MEDICARE ==
[~2019-06-11] VITALS: Ht 198.1 cm; Wt 106.6 kg
[2019-06-11 07:15] VITALS: BP 157/97
--- NOTE | 2019-06-11 07:21 | ER.PDOC ---
General Chief Complaint: Requesting Medical Care Stated Complaint: RASH Time seen by MD: 07:05 Source: patient Exam Limitations: no limitations History of Present Illness Initial Comments two days of itchy rash on legs, patchy, patient thinks that he has poison bran but is not sure, no lake, no throat closing sensation area is confined to bilateral lower extremities Timing/Duration: other Severity: mild Location: RLE, LLE Quality: itchy Identified Cause: possibly Allergies: Coded Allergies: Penicillins (Verified Allergy, Unknown, Rash, 07/30/16) sulfamethoxazole (Verified Allergy, Unknown, 07/30/16) trimethoprim (Verified Allergy, Unknown, 07/30/16) ciprofloxacin (Verified Adverse Reaction, Severe, TONGUE SWELLING, 07/30/16) Home Meds No Active Prescriptions or Reported Meds Past Medical History Medical History: other Surgical History: other Social History Drug Use: Meth Constitutional: denies fever EENTM: denies eye pain, denies ear discharge, denies nose congestion Respiratory: denies cough, denies shortness of breath, denies SOB at rest, denies stridor, denies wheezing Cardiovascular: denies chest pain, denies palpitations Gastrointestinal: denies abdominal pain Genitourinary: denies dysuria Musculoskeletal: denies back pain Skin: rash Psychiatric/Neurological: denies headache Physical Exam General Appearance: alert, no distress Skin: warm/dry, other Location: RLE, LLE Character: macular Extremities: non-tender EENT: eyes nml inspection, lips/gums nml, pharynx nml Neck: trachea midline, no swelling Respiratory: no resp. distress, breath sounds nml, respiratory distress CVS: reg. rate & rhythm, heart sounds nml Abdomen: non-tender Rectal: non-tender, rectal tenderness NEURO/PSYCH: oriented x 3, CN's nml as tested, motor nml Comments macular rash noted on bilat legs 3 small patches of areas looking like excoriation, no pustules/petechia/purpura/vesicles. not raised. no signs of infection or abscess Results/Orders Results/Orders Vital Signs Date Time Temp Pulse Resp B/P (MAP) Pulse Ox O2 Delivery O2 Flow Rate FiO2 06/11/19 07:15 98.0 86 16 99 Departure Time of Disposition: 07:19 Disposition: 01 HOME, SELF-CARE Impression: Primary Impression: Dermatitis Condition: Stable Patient Instructions: Contact Dermatitis, [id number] Referrals: GLORIA GUZMAN MD (PCP) PRIMARY CARE PROVIDER Additional Instructions: return for any worsening symptoms, use over the counter cortisone cream as directed to affected area. Scripts No Active Prescriptions or Reported Meds Duration or Time Spent with Pa: 10 JOURDAN FISCHER MD Jun 11, 2019 07:21
[2019-06-11 07:22] VITALS: BP 157/97
== END 2019-06-11 07:35 | disposition home or self-care (01) ==
LOC: ER 07:02
DX: L30.9 Dermatitis, unspecified (principal); Z88.0 Allergy status to penicillin; Z88.1 Allergy status to other antibiotic agents; Z88.2 Allergy status to sulfonamides
CPT/HCPCS: 99283

== ENCOUNTER 2019-06-23 01:15 | Emergency (ER) | payer MEDICARE ==
[~2019-06-23] VITALS: Ht 198.1 cm; Wt 108.9 kg
[2019-06-23 01:19] VITALS: BP 137/87
--- NOTE | 2019-06-23 01:22 | NUR ---
ELOPED AT NURSING STATION PUTTING IN TRIAGE, PATIENT WAS WALKING PAST NURSES STATION STATING HE IS CALLING THE [employer] AND LEFT.
--- NOTE | 2019-06-23 01:28 | ER.PDOC ---
General Chief Complaint: Requesting Medical Care Stated Complaint: GENERALIZED WEAKNESS Time seen by MD: 01:15 Source: patient Exam Limitations: clinical condition History of Present Illness Initial Comments Pt states he was bitten multiple times last night by black mambas or possibly rattlesnakes. States bites to soles of feet, legs, arms and back. Pt has been seen here in past with adverse reaction to illicit drugs including meth, ecstasy. Timing/Duration: yesterday Severity: mild Associated Symptoms: Paranoid, Hallucinating Allergies: Coded Allergies: Penicillins (Verified Allergy, Unknown, Rash, 07/30/16) sulfamethoxazole (Verified Allergy, Unknown, 07/30/16) trimethoprim (Verified Allergy, Unknown, 07/30/16) ciprofloxacin (Verified Adverse Reaction, Severe, TONGUE SWELLING, 07/30/16) Home Meds No Active Prescriptions or Reported Meds Past Medical History Medical History: no pertinent history, cancer Surgical History: colon, turp/tumt Social History Drug Use: marijuana, Meth, Amphetamines Review of Systems Constitutional: no symptoms reported EENTM: no symptoms reported Respiratory: no symptoms reported Cardiovascular: no symptoms reported Gastrointestinal: no symptoms reported Genitourinary: no symptoms reported Musculoskeletal: no symptoms reported Skin: no symptoms reported Psychiatric/Neurological: no symptoms reported Physical Exam General Appearance: No acute distress, Alert EENT: No nystagmus, PERRLA, EOM's intact, NML ENT inspection, Pharynx nml, NML gag reflex Neck: Non-Tender, Full Range of Motion, Supple, Normal Inspection Respiratory: chest non-tender, lungs clear, normal breath sounds, no respiratory distress, no accessory muscle use Cardiovascular: Normal Peripheral Pulses, Regular Rate, Rhythm, No Edema, No Gallop, No JVD, No Murmur Gastrointestinal: Normal Bowel Sounds, No Organomegaly, No Pulsatile Mass, Non Tender, Soft Extremities: Non-Tender, Normal Range of Motion, No Evidence of Trauma, No Edema Neurological/Psychiatric: Alert, Normal Mood/Affect, 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 States he is going home and will call the [employer] on us. Left ER. Departure Time of Disposition: 01:28 Disposition: HOME, SELF-CARE Impression: Primary Impression: Illicit drug use Condition: Stable Referrals: GLORIA GUZMAN MD (PCP) PRIMARY CARE PROVIDER Scripts No Active Prescriptions or Reported Meds Duration or Time Spent with Pa: 10 GILDARDO VEGA MD Jun 23, 2019 01:28
== END 2019-06-23 01:22 | disposition left against medical advice (07) ==
LOC: EDBD 01:15 → ER 01:15
DX: F15.10 Other stimulant abuse, uncomplicated (principal); F12.10 Cannabis abuse, uncomplicated; Z88.0 Allergy status to penicillin; Z88.1 Allergy status to other antibiotic agents; Z88.2 Allergy status to sulfonamides
CPT/HCPCS: 99283

== ENCOUNTER 2019-12-24 19:55 | Emergency (ER) | payer MEDICARE ==
[~2019-12-24] VITALS: Ht 198.1 cm; Wt 90.7 kg
--- NOTE | 2019-12-24 20:01 | ER.PDOC ---
General Chief Complaint: Requesting Medical Care Stated Complaint: POSSIBLE SNAKE BITE Time seen by MD: 19:58 Source: patient Exam Limitations: no limitations History of Present Illness Initial Comments Patient c/o snake bites to RLE 7-10 days ago with subsequent pain to RLE Onset: last week Where: street Animal: other (did not see a snake bite him but is convinced brown spots on legs are envenomation fong) Allergies: Coded Allergies: Penicillins (Verified Allergy, Unknown, Rash, 07/30/16) sulfamethoxazole (Verified Allergy, Unknown, 07/30/16) trimethoprim (Verified Allergy, Unknown, 07/30/16) ciprofloxacin (Verified Adverse Reaction, Severe, TONGUE SWELLING, 07/30/16) Home Meds No Active Prescriptions or Reported Meds Past Medical History Medical History: no pertinent history Surgical History: colon, turp/tumt Social History Drug Use: none Review of Systems Constitutional: no symptoms reported Respiratory: no symptoms reported Cardiovascular: no symptoms reported Gastrointestinal: no symptoms reported Musculoskeletal: see HPI Skin: see HPI Physical Exam General Appearance: alert, no distress Skin: intact (there is no evidence of snake bite or insect bite or any other kind of trauma to RLE; there are freckles noted on the skin which patient insists are snake bites) Neuro/Vascular/Tendon: no vascular compromise, oriented x3 Resp/CVS: chest non-tender, breath sounds nml, heart sounds nml, reg. rate & rhythm Extremities: nml inspection Departure Time of Disposition: 20:12 Disposition: 01 HOME, SELF-CARE Impression: Primary Impression: Leg pain Condition: Stable Patient Instructions: Leg Cramps Referrals: PCP,UNKNOWN (PCP) PRIMARY CARE PROVIDER Additional Instructions: You have no evidence of snake bite. Follow up with your doctor next week. Take tylenol and motrin per package instructions as needed for pain. Scripts No Active Prescriptions or Reported Meds Duration or Time Spent with Pa: 15 min Problem Qualifiers Primary Impression: Leg pain Laterality: right Qualified Codes: M79.604 - Pain in right leg TIERNEY PERALES DO Dec 24, 2019 20:01
[2019-12-24 20:13] VITALS: BP 158/85
[2019-12-24 20:24] VITALS: BP 158/85
== END 2019-12-24 20:20 | disposition home or self-care (01) ==
LOC: ER 19:55
DX: M79.661 Pain in right lower leg (principal); Z88.0 Allergy status to penicillin; Z88.1 Allergy status to other antibiotic agents
CPT/HCPCS: 99281

== ENCOUNTER 2020-02-10 16:18 | Emergency (ER) | payer MEDICARE ==
[~2020-02-10] VITALS: Ht 198.1 cm; Wt 92.5 kg
--- NOTE | 2020-02-10 16:27 | NUR ---
ARRIVAL PT ARRIVED TO ED WITH C/O TOOTHACHE ON THE RIGHT BOTTOM SIDE WISDOM TOOTH AND FRONT TWO TEETH X3 WEEKS. NOT FACIAL SWELLING NOTED. BEDSIDE MONITORS APPLIED. VITAL SIGNS STABLE. BED IN LOW LOCKED POSTION.
[2020-02-10 16:32] VITALS: BP_SYST 140; BP_DIAS 87; BP_DIAS 89
--- NOTE | 2020-02-10 16:55 | ER.PDOC ---
General Chief Complaint: Toothache Stated Complaint: TOOTHACHE Time seen by MD: 17:00 Source: patient Exam Limitations: no limitations History of Present Illness Timing/Duration: gradual Context: fractured tooth Associated Symptoms: toothache Severity: moderate Prior symptoms/Treatment: Similar symptoms previous Allergies: Coded Allergies: Penicillins (Verified Allergy, Unknown, Rash, 07/30/16) sulfamethoxazole (Verified Allergy, Unknown, 07/30/16) trimethoprim (Verified Allergy, Unknown, 07/30/16) ciprofloxacin (Verified Adverse Reaction, Severe, TONGUE SWELLING, 07/30/16) Home Meds No Active Prescriptions or Reported Meds Past Medical History Medical History: cancer Surgical History: turp/tumt, other Social History Alcohol Use: none Drug Use: none Reviewed Nursing Reviewed: Vital Signs, Abn. Noted All Other Systems: Reviewed and Negative Physical Exam General Appearance: alert, no distress Head/Neck: pain on palpation Eyes: eyes nml inspection, PERRL, no nystagmus Mouth: dental tenderness, widespread dental decay Throat: pharynx nml, voice nml, no airway problems Ears/Nose: nml inspection 1 - FRACTURED TOOTH Respiratory: no resp. distress, lungs clear CVS: reg. rate & rhythm, heart sounds nml Abdomen: non-tender, no organomegaly Extremities: non-tender, ROM nml Skin Exam: Normal Color, Warm/Dry NEURO/PSYCH: oriented X3, mood/effect nml Results/Orders Results/Orders Vital Signs Date Time Temp Pulse Resp B/P (MAP) Pulse Ox O2 Delivery O2 Flow Rate FiO2 02/10/20 16:32 97.5 82 16 02/10/20 16:32 97.5 82 16 95 02/10/20 16:32 97.5 82 16 140/89 (106) 95 Room Air Consult/PCP Time Consult/PCP Called: 17:00 Departure Time of Disposition: 17:00 Disposition: 01 HOME, SELF-CARE Impression: Primary Impression: Abscess of maxilla Condition: Stable Referrals: PCP,UNKNOWN (PCP) PRIMARY CARE PROVIDER Scripts No Active Prescriptions or Reported Meds Duration or Time Spent with Pa: 21M SHAMIKA CEBALLOS MD Feb 10, 2020 16:55
[2020-02-10 16:58] VITALS: BP 140/89
[2020-02-10] MEDS ORDERED: TORADOL ONE (17:07)
[2020-02-10] MEDS ORDERED: TORADOL IM STA (17:08)
[2020-02-10] MEDS ORDERED: TORADOL IM ONE (17:30)
== END 2020-02-10 16:59 | disposition home or self-care (01) ==
LOC: ER 16:18
DX: M27.2 Inflammatory conditions of jaws (principal); K08.89 Other specified disorders of teeth and supporting structures; Z88.0 Allergy status to penicillin; Z88.1 Allergy status to other antibiotic agents; Z88.2 Allergy status to sulfonamides
CPT/HCPCS: 96372; 99283; J1885

== ENCOUNTER 2020-07-10 18:04 | Emergency (ER) | payer MEDICARE ==
[~2020-07-10] VITALS: Ht 172.7 cm; Wt 81.6 kg
[~2020-07-10 18:04] MED LIST changes: +NS 1000ML 1,000 ML IV STA; +ZOFRAN IV STA
[2020-07-10] MEDS ORDERED: NS 1000ML 1,000 ML ONE (18:09)
[2020-07-10] MEDS ORDERED: ZOFRAN ONE (18:10)
[2020-07-10 18:17] VITALS: BP 104/57
--- NOTE | 2020-07-10 18:24 | ER.PDOC ---
General Chief Complaint: Requesting Medical Care Stated Complaint: SYNCOPE Time seen by MD: 18:20 Source: patient, EMS Exam Limitations: no limitations History of Present Illness Initial Comments patient c/o 2 day history n/v/d with several syncopal episodes today upon standing; EMS witnessed one syncopal episode without any kind of seizure activity--patient was extremely diaphoretic during this episode Timing/Prior Episodes: no prior history Symptoms Prior to Episode: diaphoresis, lightheadedness, nausea Precipitating Factors: standing Loss of Consciousness: Brief (Seconds) Location of Injury: None Current Symptoms: back to normal Prior symptoms/Treatment: No Similar symptoms previous, No Recenly Seen, No Treated by Doctor, No Recently Hospitalized Allergies: Coded Allergies: Penicillins (Verified Allergy, Unknown, Rash, 07/30/16) codeine (Verified Allergy, Unknown, 05/30/20) sulfamethoxazole (Verified Allergy, Unknown, 07/30/16) trimethoprim (Verified Allergy, Unknown, 07/30/16) ciprofloxacin (Verified Adverse Reaction, Severe, TONGUE SWELLING, 07/30/16) Past Medical History Medical History: cancer, other Surgical History: turp/tumt, other Family History Significant Family History: no pertinent family hx Social History Smoking: cigarettes Alcohol Use: occassionally Drug Use: Amphetamines Review of Systems Constitutional: diaphoresis EENTM: denies no symptoms reported, denies see HPI, denies eye pain, denies blurred vision, denies tearing, denies double vision, denies ear pain, denies ear discharge, denies nose pain, denies nose congestion, denies throat pain, denies throat swelling, denies mouth pain, denies mouth swelling, denies other Respiratory: denies no symptoms reported, denies see HPI, denies cough, denies orthopnea, denies shortness of breath, denies stridor, denies wheezing, denies other Cardiovascular: denies see HPI, denies chest pain, denies edema, denies palpitations; syncope; denies other Gastrointestinal: denies see HPI, denies abdominal pain, denies constipation; diarrhea, nausea, vomiting; denies other Genitourinary: denies no symptoms reported, denies see HPI, denies discharge, denies dysuria, denies frequency, denies hematuria, denies pain, denies other Musculoskeletal: denies no symptoms reported, denies see HPI, denies back pain, denies gout, denies joint pain, denies joint swelling, denies muscle pain, denies muscle stiffness, denies neck pain, denies other Skin: denies no symptoms reported, denies see HPI, denies change in color, denies change in hair/nails, denies dryness, denies lesions, denies lumps, denies rash, denies other All Other Systems: Reviewed and Negative Physical Exam General Appearance: No Apparent Distress, WD/WN HEENT: PERRL/EOMI, Normal ENT Inspection Neck: Full Range of Motion, Supple Cardiovascular/Respiratory: Regular Rate, Rhythm, Normal Breath Sounds, No Respiratory Distress Gastrointestinal: Normal Bowel Sounds, Non Tender, Soft Extremities: Normal Range of Motion, Non-Tender Cranial Nerves: Normal Hearing, Normal Speech, PERRL Motor/Sensory: No Motor Deficit Skin: Normal Color, Warm/Dry Lymphatic: No Adenopathy Results/Orders Results/Orders Orders - TIERNEY PERALES DO Cbc With Auto Diff (07/10/20 18:04) Comprehensive Metabolic Panel (07/10/20 18:04) Creatine Kinase (07/10/20 18:04) Creatine Kinase Mb (07/10/20 18:04) Troponin I (07/10/20 18:04) Probnp B-Type End Touching Machine Operator (07/10/20 18:04) PT (07/10/20 18:04) Partial Thromboplastin Time. (07/10/20 18:04) Helicobacter Pylori (07/10/20 18:04) D-Dimer (07/10/20 18:04) Xr Chest 1v (07/10/20 18:04) Ekg-Routine (07/10/20 18:04) Saline Lock (07/10/20 18:04) Amylase (07/10/20 18:04) Lipase (07/10/20 18:04) Ondansetron Hcl/Pf (Zofran) (07/10/20 18:04) 0.9 % Sodium Chloride (Ns 1000ml) (07/10/20 18:04) Ct Head Wo Contrast (07/10/20 18:04) Urinalysis (07/10/20 18:04) Drug Scrn Med W Confirmation (07/10/20 18:04) 0.9 % Sodium Chloride (Ns 1000ml) (07/10/20 18:09) Ondansetron Hcl/Pf (Zofran) (07/10/20 18:10) Enoxaparin Sodium (Lovenox) (07/10/20 19:13) Cta Chest (07/10/20 20:29) Enoxaparin Sodium (Lovenox) (07/10/20 20:39) Vital Signs Date Time Temp Pulse Resp B/P (MAP) Pulse Ox O2 Delivery O2 Flow Rate FiO2 07/10/20 20:10 70 20 104/61 (75) 99 Room Air 07/10/20 19:10 98.1 70 20 103/74 (84) 100 Room Air 07/10/20 18:17 97.9 90 20 99 07/10/20 18:17 97.9 90 20 99 Administered Medications Medications (Trade) Dose Ordered Sig/Ghislaine Route PRN Reason Start Time Stop Time Status Last Admin Dose Admin Enoxaparin Sodium (Lovenox) 80 mg STAT STAT SQ 07/10/20 19:13 07/10/20 19:14 DC 07/10/20 20:15 80 MG Ondansetron HCl (Zofran) 4 mg STAT STAT IV 07/10/20 18:04 07/10/20 18:07 DC 07/10/20 18:08 4 MG Sodium Chloride 1,000 ml @ 1,200 mls/hr Q50M STAT IV 07/10/20 18:04 07/10/20 18:53 DC 07/10/20 18:08 1,200 MLS/HR Laboratory Tests Test 07/10/20 18:30 White Blood Count 6.6 10^3/uL (4.5-11.0) Red Blood Count 4.57 10^6/uL (4.50-5.90) Hemoglobin 14.7 g/dL (13.9-16.3) Hematocrit 42.6 % (37.0-53.0) Mean Corpuscular Volume 93.2 fL (78-100) Mean Corpuscular Hemoglobin 32.2 pg (26-34) Mean Corpuscular Hemoglobin Concent 34.5 g/dL (33-36.5) Red Cell Distribution Width 12.7 % (11.5-14.5) Platelet Count 184 10^3/uL (150-400) Mean Platelet Volume 8.9 fL (7.8-11.0) Neutrophils (%) (Auto) 66.5 % (41.0-85.0) Lymphocytes (%) (Auto) 23.5 % (24.0-44.0) L Monocytes (%) (Auto) 7.9 % (5.0-12.0) Neutrophils # (Auto) 4.4 10^3/uL (1.8-7.7) Lymphocytes # (Auto) 1.54 10^3/uL1 (1.0-4.8) Monocytes # (Auto) 0.5 10^3/uL (0.3-0.8) Absolute Immature Granulocyte (auto 0.01 10^3 u/L (0-2) Absolute Eosinophils (auto) 0.1 10^3/uL (0.0-0.2) Immature Granulocytes % 0.20 % (0.00-0.50) Eosinophils % 1.4 % (0.0-5.0) Basophils % 0.5 % (0.0-0.2) H Basophils # 0.0 10^3/uL (0.0-0.1) Prothrombin Time 11.5 SEC (9.3-11.3) H Prothrombin Time INR (Non-Therap) 1.1 Activated Partial Thromboplast Time 22.7 SEC (24.67-30.72) D-Dimer 1.86 mg/L (0.19-0.49) *H Sodium Level 140 mmol/L (132-145) Potassium Level 4.0 mmol/L (3.6-5.2) Chloride Level 108.0 mmol/L (96-109) Carbon Dioxide Level 23.2 mmol/L (20.0-32) Anion Gap 12.8 Blood Urea Nitrogen 34 mg/dL (7-18) H Creatinine 1.21 mg/dL (0.59-1.40) Estimated GFR () 74.0 (>/=60) Est GFR (CKD-EPI)(Non-Afr Sri [place]an) 61.2 (>/=60) BUN/Creatinine Ratio 28.0 Glucose Level 125 mg/dL (70-110) H Calcium Level 7.7 mg/dL (8.4-10.5) L Total Bilirubin 0.3 mg/dL (0.2-1.0) Aspartate Amino Transferase (AST) 25 U/L (0-35) Alanine Aminotransferase (ALT) 33 U/L (12-78) Alkaline Phosphatase 67 U/L (50-136) Total Creatine Kinase 63 U/L (39-308) Creatine Kinase MB 3.1 ng/mL (0.5-3.6) Troponin I < 0.02 ng/mL (0.00-0.05) Pro-B-Type Natriuretic Peptide 72 pg/mL (0-125) Total Protein 5.9 g/dL (6.4-8.2) L Albumin 3.1 g/dL (3.4-5.0) L Globulin 2.8 Albumin/Globulin Ratio 1.107 Amylase Level 58 U/L (25-115) Lipase 65 U/L (114-286) L Helicobacter pylori Screen NEGATIVE (NEGATIVE) Progress Progress patient refused to supply urine specimen EKG/XRAY/CT/US EKG Comments: NSR, VR 80, no acute STT changes CT Comments: no PE ER DEPART Departure Time of Disposition: 22:40 Disposition: 01 HOME, SELF-CARE Impression: Primary Impression: Syncope and collapse Additional Impression: Diarrhea Condition: Stable Patient Instructions: Diarrhea, Syncope Referrals: PCP,UNKNOWN (PCP) PRIMARY CARE PROVIDER Additional Instructions: Follow up with your doctor this week for reevaluation. Maintain a strictly clear liquid diet for 24 hours (anything you can hold up to a light and see through)--no fruit juice, no caffeine. Gradually advance diet as tolerated after that--bland!! OTC immodium per package directions for diarrhea. Return to ER for any emergent concerns. Duration or Time Spent with Pa: 20 min Problem Qualifiers Additional Impression: Diarrhea Diarrhea type: unspecified type Qualified Codes: R19.7 - Diarrhea, unspecified TIERNEY PERALES DO Jul 10, 2020 18:24
--- NOTE | 2020-07-10 18:26 | PCM.EKG ---
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
--- NOTE | 2020-07-10 18:26 | DIREP ---
PROCEDURE:CHEST 1 VIEW COMPARISON:[facility], CR, XRAY CHEST SINGLE VW, 05/27/2020, 06:38 PM. INDICATIONS:syncope FINDINGS: LUNGS/PLEURA:No significant pulmonary parenchymal abnormalities. No effusions. VASCULATURE:Normal. Unremarkable pulmonary vasculature. CARDIAC:Normal. No cardiac silhouette abnormality or cardiomegaly. MEDIASTINUM:Normal. No visible mass or adenopathy. BONES:Normal. No fracture or visible bony lesion. OTHER:Negative. CONCLUSION:No acute disease. Dictated by: Troy Baldwin MD on 07/10/2020 at 06:24 PM
[2020-07-10 18:51] LABS: BASOPHIL % 0.5 % (0.0-0.2); EOSINOPHIL # 0.1 10^3/uL (0.0-0.2); EOSINOPHIL % 1.4 % (0.0-5.0); LYMPHOCYTES # 1.54 10^3/uL1 (1.0-4.8); LYMPHOCYTES % 23.5 % (24.0-44.0); MEAN CORP HGB 32.2 pg (26-34); MONOCYTES # 0.5 10^3/uL (0.3-0.8); MONOCYTES % 7.9 % (5.0-12.0); NEUTROPHIL # 4.4 10^3/uL (1.8-7.7); NEUTROPHILS % 66.5 % (41.0-85.0); PLATELET COUNT 184 10^3/uL (150-400); RED CELL DISTRIBUTION WIDTH 12.7 % (11.5-14.5)
--- NOTE | 2020-07-10 19:05 | NUR ---
CHANGE OF SHIFT ROUNDING ASSUMED CARE OF THIS PT AT THIS TIME. PT REPORTING 2 DAYS OF NAUSEA, VOMITING, AND DIARRHEA. STATES HE PASSED OUT MULTIPLE TIMES TODAY WHEN HE STOOD UP. PER EDP DOCUMENTATION, ONE SYNCOPAL EPISODE WAS WITNESS BY EMS, LEADING TO DIAPHORESIS, AND WEAKNESS. PT CURRENTLY IN NAD WITH RR EVEN AND UNLABORED. REPORTING IMPROVEMENT IN SYMPTOMS AT THIS TIME. PT UPDATED ON PLAN OF CARE, AND REASON FOR WAIT. VS UPDATED AT THIS TIME.
--- NOTE | 2020-07-10 19:07 | DIREP ---
PROCEDURE:CT HEAD OR BRAIN W/O CONTRAST COMPARISON:[facility], CT, CT HEAD BRAIN W/O CONTRAST, 05/27/2020, 07:10 PM. INDICATIONS:syncope TECHNIQUE:CT images were created without intravenous contrast. FINDINGS: VENTRICLES:The ventricles are normal in size and configuration. CEREBRUM:Normal cerebral morphology with appropriate little white matter differentiation. CEREBELLUM:Negative. BRAINSTEM:Negative. BASAL CISTERNS:Negative. HEMORRHAGE:No MASS LESION:No ACUTE INFARCT:No SKULL:Normal. SINUSES:Normal. OTHER:None CONCLUSION:No acute intracranial abnormality or significant interval change. Dictated by: Orlando Erickson M.D. on 07/10/2020 at 07:05 PM
[2020-07-10 19:10] VITALS: BP 103/74
[2020-07-10] MEDS ORDERED: LOVENOX SQ STA (19:13)
[2020-07-10 19:18] LABS: ALANINE AMINOTRANSFERASE(ML) 33 U/L (12-78); ALKALINE PHOSPHATASE 67 U/L (50-136); ASPARTATE AMINO TRANSFERASE 25 U/L (0-35); CALCIUM 7.7 mg/dL (8.4-10.5); CARBON DIOXIDE 23.2 mmol/L (20.0-32); GLUCOSE 125 mg/dL (70-110)
[2020-07-10 20:10] VITALS: BP 104/61
[2020-07-10 20:36] VITALS: BP 103/74
[2020-07-10] MEDS ORDERED: LOVENOX SQ ONE (20:39)
--- NOTE | 2020-07-10 21:30 | NUR ---
PT REPORTING HAVING AN EPISODE OF DIARRHEA IN HIS PANTS. PT REQUESTING TO AMBULOATE TO THE BATHROOM. WHEELCHAIR DECLINED. PT AMBULATORY WITH STEADY GAIT. PT IN NAD WITH RR EVEN AND UNLABORED.
--- NOTE | 2020-07-10 22:15 | NUR ---
PT REPORTING IMPROVEMENT IN SYMPTOMS. DENIES NAUSEA AND ABDOMINAL PAIN AT THIS TIME. PT INFORMED OF PENDING U/A. PROVIDED WITH WATER.
--- NOTE | 2020-07-10 22:20 | NUR ---
PT REPORTING INABILITY TO PROVIDE URINE SAMPLE. EDP DR. PERALES MADE AWARE. ORDER TO BE CANCELLED.
[2020-07-10] MEDS ORDERED: LOMOTIL PO STA (22:41)
[2020-07-10 22:59] VITALS: BP 110/64
== END 2020-07-10 23:15 | disposition home or self-care (01) ==
LOC: ER 18:04 → EDSEX 18:04 → EDBD 18:04 → ER 23:15
DX: R55 Syncope and collapse (principal); R61 Generalized hyperhidrosis; R42 Dizziness and giddiness; R19.7 Diarrhea, unspecified; F17.210 Nicotine dependence, cigarettes, uncomplicated; Z79.01 Long term (current) use of anticoagulants; Z79.899 Other long term (current) drug therapy; Z88.0 Allergy status to penicillin; Z88.1 Allergy status to other antibiotic agents; Z88.2 Allergy status to sulfonamides; Z88.5 Allergy status to narcotic agent; Z90.79 Acquired absence of other genital organ(s)
CPT/HCPCS: 36415; 70450; 71045; 71275; 80053; 82150; 82550; 82553; 83690; 83880; 84484; 85025; 85379; 85610; 85730; 86677; 93005; 96361; 96372; 96374; 99285; J1650; J2405; J7030; Q9965

== ENCOUNTER 2021-04-30 08:18 | Emergency (ER) | payer MEDICARE ==
[~2021-04-30] VITALS: Ht 198.1 cm; Wt 112.5 kg
[~2021-04-30 08:18] MED LIST changes: -NS 1000ML 1,000 ML IV STA; -ZOFRAN IV STA
[2021-04-30 08:30] VITALS: BP_SYST 167; BP_SYST 187; BP_DIAS 113; BP_DIAS 115
[2021-04-30 08:33] VITALS: BP 167/106
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
[2021-04-30 08:55] VITALS: BP 169/88
--- NOTE | 2021-04-30 08:56 | ER.PDOC ---
General Chief Complaint: Extremities Stated Complaint: INSECT BITE TRAVEL OUT OF US: No Time seen by MD: 08:40 Source: patient Exam Limitations: no limitations History of Present Illness Initial Comments This 61-year-old white male comes in with a complaint that he "may be got bit by a snake last night"I asked him her this may or may not have happened and he indicated that it happened while he was asleep. Patient has a history of coming in frequently with complaints similar to this. He is homeless. He also has someTo disorders.When I ask him where the snake bit him he shows me a couple little scratches on his left hand 1 is just distal to the IP joint of his thumb and the other is just on the medial aspectOf his metacarpal phalangeal joint of his index finger. There is no edema around the scratches there is no erythema there is no evidence of any infection. Timing/Duration: unsure Severity: mild Associated Symptoms: denies symptoms (Frequent visitor for a similar type complaints) Allergies: Coded Allergies: Penicillins (Verified Allergy, Unknown, Rash, 07/30/16) codeine (Verified Allergy, Unknown, 05/30/20) sulfamethoxazole (Verified Allergy, Unknown, 07/30/16) trimethoprim (Verified Allergy, Unknown, 07/30/16) ciprofloxacin (Verified Adverse Reaction, Severe, TONGUE SWELLING, 07/30/16) Past Medical History Medical History: other Surgical History: other Social History Smoking: cigarettes, less than 1 pack/day Alcohol Use: none Drug Use: none Review of Systems Skin: see HPI All Other Systems: Reviewed and Negative Physical Exam General Appearance: No Apparent Distress, WD/WN EENT: eyes nml inspection, nml ENT inspection, pharynx nml Respiratory: chest non-tender, lungs clear CVS: reg rate & rhythm, no murmur, no gallop, pulses nml Gastrointestinal: Normal Bowel Sounds, Non Tender Back: Normal Inspection Extremities: Normal Range of Motion, Non-Tender, Normal Inspection, Other (1 small scratch over his metacarpal phalangeal joint of the left index finger. Small little that has slight erythema but no edema and no drainage. 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, No Motor/Sensory Deficits, Alert, Normal Mood/Affect, Other (Patient knows where he is and his name but he does not know the date) Skin: Normal Color, Warm/Dry Lymphatic: No Adenopathy Results/Orders Results/Orders Vital Signs Date Time Temp Pulse Resp B/P (MAP) Pulse Ox O2 Delivery O2 Flow Rate FiO2 04/30/21 08:33 98.3 115 18 167/106 (126) 98 Room Air 04/30/21 08:30 98.3 115 18 04/30/21 08:30 98.3 115 18 167/113 (131) 98 Room Air 04/30/21 08:30 98.3 115 18 98 ER DEPART Departure Time of Disposition: 08:54 Disposition: 01 HOME / SELF CARE / HOMELESS Impression: Primary Impression: Abrasion hand Condition: Stable Referrals: PCP,UNKNOWN (PCP) PRIMARY CARE PROVIDER Duration or Time Spent with Pa: Nicolasm ANDREI BURTON MD Apr 30, 2021 08:56
== END 2021-04-30 08:56 | disposition home or self-care (01) ==
LOC: ER 08:18
DX: S60.512A Abrasion of left hand, initial encounter (principal); Z59.00 Homelessness unspecified; Z88.0 Allergy status to penicillin; Z88.1 Allergy status to other antibiotic agents; Z88.2 Allergy status to sulfonamides; Z88.5 Allergy status to narcotic agent; W59.11XA Bitten by nonvenomous snake, initial encounter; Y93.89 Activity, other specified; Y92.89 Other specified places as the place of occurrence of the external cause; Y99.8 Other external cause status
CPT/HCPCS: 99282